=== PATIENT | female | born 1940 | race Caucasian/White ===

== ENCOUNTER → 2016-06-03 | Outpatient (CLI) | payer OTHER ==
[~2016-06-03] MED LIST: ATEN-60 PO; BACL10TA PO; CALC600T65 PO; OMEP20TA44 PO; SIMV-8 PO
[2016-06-03 14:35] LABS: Basophils # (auto) 0.1 uL; DEFINITIVE VIEW TRANSMISSION; Eosinophils # (auto) 0.1 uL; Hemoglobin 10.2 g/dL (12.2-16.2); Monocytes # (auto) 0.4 uL
[2016-06-03 14:37] LABS: Urine Bilirubin Negative (Negative); Urine Blood TRACE /uL (Negative); Urine Color Yellow (Yellow); Urine Glucose Normal (Normal); Urine Ketone Negative (Negative); Urine Nitrite Negative (Negative); Urine Urobilinogen Normal (Negative); Urine pH 7.5 (5.0-8.0)
[2016-06-03 14:39] LABS: Basophils % (auto) 1.6 % (0.0-2.0); Eosinophils % (auto) 2.4 % (0.0-7.0); Hematocrit 32.7 % (36.0-46.0); Lymphocytes % (auto) 16.5 % (10.0-50.0); Mean Corpuscular Hemoglobin 23.1 pg (28.0-32.0); Mean Corpuscular Hgb Conc. 31.1 g/dL (32.0-36.0); Mean Corpuscular Volume 74.3 fL (80.0-100.0); Mean Platelet Volume 9.1 fL (7.4-10.4); Monocytes % (auto) 6.7 % (0.0-12.0); Neutrophils # (auto) 4.3 uL; Neutrophils % (auto) 72.8 % (37.0-80.0); Platelet Count (auto) 412 10^3/uL (140-450); White Blood Cell 5.9 10^3/uL (4.4-10.8)
[2016-06-03 14:58] LABS: Albumin 3.7 g/dL (3.4-5.0); BUN/Creatinine Ratio 15.6; Bilirubin, Total 0.5 mg/dL (0.2-1.0); Potassium 3.8 mmol/L (3.5-5.1)
== END | disposition home or self-care (01) ==
LOC: LAB 13:54
PROVIDERS: ATTEND Internal Medicine Gastroenterology
DX: D50.0 Iron deficiency anemia secondary to blood loss (chronic) (principal); I10 Essential (primary) hypertension; D64.9 Anemia, unspecified
CPT/HCPCS: 36415; 80053; 80061; 81003; 82306; 82607; 83036; 85025; 85049

== ENCOUNTER 2016-08-05 07:39 | Emergency (ER) | payer OTHER ==
[~2016-08-05] VITALS: Ht 162.6 cm; Wt 66.7 kg
[2016-08-05 08:01] VITALS: BP 112/52
[2016-08-05] MEDS ORDERED: SODIUM CHLORIDE 0.9% 2,000 ML IV ONE (08:31)
[2016-08-05] MEDS ORDERED: ONDANSETRON HCL 4 MG/2 ML VIAL IV ONE (08:45)
[2016-08-05] MEDS ORDERED: MORPHINE SULF INJ 2 MG/ML SYRINGE 1ML IV ONE (08:45)
[2016-08-05] MEDS ORDERED: cefTRIAXone 1GM/50ML D5W 50 ML IV ONE (09:00)
[2016-08-05 09:27] LABS: Basophils # (auto) 0.1 uL; Basophils % (auto) 1.3 % (0.0-2.0); DEFINITIVE VIEW TRANSMISSION; Eosinophils # (auto) 0.2 uL; Eosinophils % (auto) 2.2 % (0.0-7.0); Hematocrit 31.8 % (36.0-46.0); Lymphocytes # (auto) 1.2 uL; Lymphocytes % (auto) 13.5 % (10.0-50.0); Mean Corpuscular Hemoglobin 21.9 pg (28.0-32.0); Mean Corpuscular Hgb Conc. 31.3 g/dL (32.0-36.0); Mean Corpuscular Volume 69.9 fL (80.0-100.0); Mean Platelet Volume 8.5 fL (7.4-10.4); Monocytes # (auto) 0.5 uL; Monocytes % (auto) 5.5 % (0.0-12.0); Neutrophils # (auto) 7.1 uL; Neutrophils % (auto) 77.5 % (37.0-80.0); Platelet Count (auto) 476 10^3/uL (140-450); Red Cell Distribution Width 17.7 % (11.6-16.0); White Blood Cell 9.1 10^3/uL (4.4-10.8)
[2016-08-05 09:44] LABS: Albumin 3.3 g/dL (3.4-5.0); BUN/Creatinine Ratio 19.4; Bilirubin, Total 0.3 mg/dL (0.2-1.0); Calcium 9.5 mg/dL (8.5-10.1); Total Protein 7.9 g/dL (6.4-8.2)
[2016-08-05 10:06] LABS: Urine Bilirubin Negative (Negative); Urine Color Yellow (Yellow); Urine Glucose Normal (Normal); Urine Hyaline Cast FEW /lpf (0 - 2); Urine Ketone Negative (Negative); Urine Mucus FEW (None Seen); Urine Nitrite Negative (Negative); Urine RBC 4 /hpf (0 - 4); Urine Squamous Epithelial Cell FEW /hpf (<5); Urine Urobilinogen Normal (Negative); Urine WBC Clumps PRESENT /hpf (None Seen)
[2016-08-05 10:09] LABS: Urine Blood 1+ /uL (Negative)
== END 2016-08-05 10:35 | disposition home or self-care (01) ==
LOC: ER 07:39
DX: N39.0 Urinary tract infection, site not specified (principal); I10 Essential (primary) hypertension; M19.90 Unspecified osteoarthritis, unspecified site; K21.9 Gastro-esophageal reflux disease without esophagitis; E78.5 Hyperlipidemia, unspecified; I25.2 Old myocardial infarction; Z98.61 Coronary angioplasty status; Z88.6 Allergy status to analgesic agent; Z79.899 Other long term (current) drug therapy
CPT/HCPCS: 36415; 71010; 76775; 80053; 81001; 81002; 85025; 93005; 94761; 96365; 96375; 99285; J0696; J2270; J2405; J7030

== ENCOUNTER 2016-08-10 08:40 | Emergency (ER) | payer OTHER ==
[~2016-08-10] VITALS: Ht 162.6 cm; Wt 66.7 kg
[2016-08-10 08:45] VITALS: BP 155/73
[2016-08-10] MEDS ORDERED: SODIUM CHLORIDE 0.9% 250 ML IV ONE (10:33)
[2016-08-10] MEDS ORDERED: KETOROLAC TROMETH 30 MG/ML 1ML VIAL IV ONE (10:45)
[2016-08-10] MEDS ORDERED: METOCLOPRAMIDE HCL 5MG/ml INJ 2ml VIAL IV ONE (10:45)
[2016-08-10] MEDS ORDERED: DEXAMETHASONE SOD PHOS 4 MG/1ML SDV INJ IV ONE (10:45)
== END 2016-08-10 12:54 | disposition home or self-care (01) ==
LOC: ER 08:42
DX: M51.36 Other intervertebral disc degeneration, lumbar region (principal); M19.90 Unspecified osteoarthritis, unspecified site; I10 Essential (primary) hypertension; K21.9 Gastro-esophageal reflux disease without esophagitis; E78.5 Hyperlipidemia, unspecified; I25.2 Old myocardial infarction; Z98.61 Coronary angioplasty status; G89.29 Other chronic pain; M54.5 Low back pain; Z88.6 Allergy status to analgesic agent; Z79.899 Other long term (current) drug therapy
CPT/HCPCS: 93005; 96361; 96374; 96375; 99284; J1100; J1885; J2765; J7030

== ENCOUNTER → 2016-08-25 | Outpatient (CLI) | payer OTHER | END | disposition home or self-care (01) | LOC: LAB 10:30 | DX: E03.9 Hypothyroidism, unspecified (principal); E21.5 Disorder of parathyroid gland, unspecified; N39.0 Urinary tract infection, site not specified; E55.9 Vitamin D deficiency, unspecified | CPT/HCPCS: 36415; 82306; 83970; 84155; 84156; 84165; 84166; 84443 ==

== ENCOUNTER → 2016-12-02 | Outpatient (CLI) | payer OTHER ==
[2016-12-02 10:15] LABS: BUN/Creatinine Ratio 15.7; Potassium 3.7 mmol/L (3.5-5.1)
[2016-12-02 10:16] LABS: Albumin 3.6 g/dL (3.4-5.0); Bilirubin, Total 0.6 mg/dL (0.2-1.0); Calcium 8.9 mg/dL (8.5-10.1); Total Protein 7.5 g/dL (6.4-8.2)
== END | disposition home or self-care (01) ==
LOC: LAB 09:05
PROVIDERS: ATTEND Family Medicine
DX: I10 Essential (primary) hypertension (principal); R13.10 Dysphagia, unspecified; E11.9 Type 2 diabetes mellitus without complications; D64.9 Anemia, unspecified
CPT/HCPCS: 36415; 80053; 80061; 82607; 83036; 84443

== ENCOUNTER 2016-12-22 17:25 | Inpatient (IN) | payer OTHER ==
[~2016-12-22] VITALS: Ht 162.6 cm; Wt 68.0 kg
[2016-12-22 18:52] LABS: Basophils # (auto) 0.1 uL; CONDITION Y; DEFINITIVE SEE PRINTOUT; Eosinophils # (auto) 0 uL; Eosinophils % (auto) 0.5 % (0.0-7.0); Hematocrit 20.4 % (36.0-46.0); Lymphocytes % (auto) 9.5 % (10.0-50.0); Mean Corpuscular Hemoglobin 17.8 pg (28.0-32.0); Mean Corpuscular Hgb Conc. 29.8 g/dL (32.0-36.0); Mean Corpuscular Volume 59.8 fL (80.0-100.0); Mean Platelet Volume 8.5 fL (7.4-10.4); Monocytes # (auto) 0.8 uL; Monocytes % (auto) 7.4 % (0.0-12.0); Neutrophils # (auto) 8.3 uL; Neutrophils % (auto) 81.6 % (37.0-80.0); Platelet Count (auto) 433 10^3/uL (140-450); White Blood Cell 10.2 10^3/uL (4.4-10.8)
[2016-12-22 18:55] LABS: Red Cell Distribution Width 20.1 % (11.6-16.0)
[2016-12-22 18:56] LABS: Hemoglobin 6.1 g/dL (12.2-16.2)
[2016-12-22 19:15] LABS: Albumin 3.7 g/dL (3.4-5.0); Calcium 9.6 mg/dL (8.5-10.1); Potassium 4.3 mmol/L (3.5-5.1)
[2016-12-22] MEDS ORDERED: PANTOPRAZOLE 40 MG/10 ML VIAL IV ONE (19:15)
[2016-12-22] MEDS ORDERED: SODIUM CHLORIDE 0.9% 1,000 ML IV ONE (19:15)
[2016-12-22 19:17] LABS: BUN/Creatinine Ratio 18.6
[2016-12-22 19:27] LABS: Bilirubin, Total 0.4 mg/dL (0.2-1.0); Total Protein 7.6 g/dL (6.4-8.2)
[2016-12-22 21:04] LABS: Anisocytosis Slight; Platelet Estimate Adequate
[2016-12-22 21:05] LABS: Hypochromia Slight; Microcytosis Slight; Ovalocytes FEW; Tear Drop Cells FEW
[2016-12-22] MEDS: ENOXAPARIN SOD 40 MG/0.4 ML SYRINGE SC SCH (21:13)
[2016-12-22] MEDS ORDERED: ACETAMINOPHEN 325 MG TAB PO PRN (21:15)
[2016-12-22] MEDS ORDERED: TEMAZEPAM 15 MG CAP PO PRN (21:15)
[2016-12-22] MEDS ORDERED: ONDANSETRON HCL 4 MG/2 ML VIAL IV PRN (21:15)
[2016-12-22 21:27] LABS: Urine Bilirubin Negative (Negative); Urine Blood Negative /uL (Negative); Urine Color Yellow (Yellow); Urine Glucose Normal (Normal); Urine Ketone Negative (Negative); Urine Nitrite Negative (Negative); Urine RBC <1 /hpf (0 - 4); Urine Squamous Epithelial Cell FEW /hpf (<5); Urine Urobilinogen Normal (Negative)
[2016-12-22] MEDS: ATORVASTATIN 20 MG TAB PO SCH (22:22)
[2016-12-22] MEDS: ATENOLOL 25 MG TAB PO SCH (22:22)
[2016-12-22] MEDS: SODIUM CHLORIDE 0.9% 1,000 ML IV SCH (22:22)
[2016-12-22 22:40] VITALS: BP 151/69
[2016-12-22 23:00] VITALS: BP 151/69
[2016-12-22 23:16] VITALS: BP 124/52
[2016-12-22 23:33] VITALS: BP 121/57
[2016-12-23] VITALS (22 sets, daily range): BP systolic 110–143; BP diastolic 45–78
[2016-12-23 06:32] LABS: Basophils # (auto) 0.1 uL; Basophils % (auto) 1.6 % (0.0-2.0); CONDITION Y; DEFINITIVE SEE PRINTOUT; Eosinophils # (auto) 0.2 uL; Eosinophils % (auto) 2.4 % (0.0-7.0); Hematocrit 24.6 % (36.0-46.0); Hemoglobin 7.6 g/dL (12.2-16.2); Lymphocytes # (auto) 1.7 uL; Lymphocytes % (auto) 21.6 % (10.0-50.0); Mean Corpuscular Hemoglobin 20.4 pg (28.0-32.0); Mean Corpuscular Volume 65.7 fL (80.0-100.0); Mean Platelet Volume 8.9 fL (7.4-10.4); Monocytes # (auto) 0.8 uL; Monocytes % (auto) 10.2 % (0.0-12.0); Neutrophils % (auto) 64.2 % (37.0-80.0); Platelet Count (auto) 390 10^3/uL (140-450); SUSPECT SEE PRINTOUT; White Blood Cell 7.8 10^3/uL (4.4-10.8)
[2016-12-23 06:34] LABS: Red Cell Distribution Width 26.4 % (11.6-16.0)
[2016-12-23 07:10] LABS: Albumin 3.1 g/dL (3.4-5.0); BUN/Creatinine Ratio 19.5; Bilirubin, Total 0.5 mg/dL (0.2-1.0); Calcium 8.5 mg/dL (8.5-10.1); Total Protein 6.3 g/dL (6.4-8.2)
[2016-12-23] MEDS: ATENOLOL 25 MG TAB PO SCH ×2 (09:02→23:04)
[2016-12-23] MEDS: PANTOPRAZOLE 40 MG/10 ML VIAL IV SCH (09:02)
[2016-12-23] MEDS: PARoxetine 20 MG TAB PO SCH (09:03)
[2016-12-23] MEDS: FERROUS SULFATE 325 MG TAB PO SCH ×2 (09:03→18:10)
[2016-12-23] MEDS ORDERED: PANTOPRAZOLE 40 MG/10 ML VIAL IV SCH (10:00)
[2016-12-23] MEDS ORDERED: cefTRIAXone 1GM/50ML D5W 50 ML IV ONE (12:30)
[2016-12-23] MEDS: guaiFENesin-DEXTROMETHORPHAN 5ML SYR PO PRN (12:59)
[2016-12-23] MEDS: SODIUM CHLORIDE 0.9% 1,000 ML IV SCH (14:02)
[2016-12-23 16:10] LABS: Platelet Estimate Adequate
[2016-12-23 16:11] LABS: Anisocytosis Moderate; Hypochromia Marked; Microcytosis Marked; Ovalocytes FEW
[2016-12-23 16:13] LABS: Tear Drop Cells FEW
[2016-12-23] MEDS: BOOST PLUS 8 ounce PO SCH (18:11)
[2016-12-23] MEDS: ENOXAPARIN SOD 40 MG/0.4 ML SYRINGE SC SCH (21:00)
[2016-12-23] MEDS: LATANOPROST 0.005 % OPTH(EYE) SOL 2.5ML EACHEYE SCH (22:59)
[2016-12-23] MEDS: ATORVASTATIN 20 MG TAB PO SCH (22:59)
[2016-12-24 01:10] VITALS: BP 139/68
[2016-12-24] MEDS: guaiFENesin-DEXTROMETHORPHAN 5ML SYR PO PRN (02:02)
[2016-12-24 05:27] VITALS: BP 130/56
[2016-12-24 06:08] LABS: Basophils # (auto) 0.1 uL; Basophils % (auto) 1.5 % (0.0-2.0); CONDITION Y; DEFINITIVE SEE PRINTOUT; Eosinophils # (auto) 0.2 uL; Eosinophils % (auto) 2.2 % (0.0-7.0); Hematocrit 29.5 % (36.0-46.0); Hemoglobin 9.3 g/dL (12.2-16.2); Lymphocytes # (auto) 1.8 uL; Mean Corpuscular Hemoglobin 22.1 pg (28.0-32.0); Mean Corpuscular Hgb Conc. 31.5 g/dL (32.0-36.0); Mean Corpuscular Volume 70.3 fL (80.0-100.0); Mean Platelet Volume 8.9 fL (7.4-10.4); Monocytes # (auto) 1.1 uL; Monocytes % (auto) 11.6 % (0.0-12.0); Neutrophils # (auto) 6.3 uL; Neutrophils % (auto) 65.7 % (37.0-80.0); Platelet Count (auto) 335 10^3/uL (140-450); SUSPECT SEE PRINTOUT; White Blood Cell 9.6 10^3/uL (4.4-10.8)
[2016-12-24] MEDS: SODIUM CHLORIDE 0.9% 1,000 ML IV SCH ×2 (06:22→23:02)
[2016-12-24 06:25] LABS: Albumin 3.1 g/dL (3.4-5.0); BUN/Creatinine Ratio 21.3; Bilirubin, Total 0.8 mg/dL (0.2-1.0); Calcium 8.2 mg/dL (8.5-10.1); Total Protein 6.4 g/dL (6.4-8.2)
[2016-12-24 06:26] LABS: Red Cell Distribution Width 28.6 % (11.6-16.0)
[2016-12-24] MEDS: BOOST PLUS 8 ounce PO SCH ×3 (08:00→18:00)
[2016-12-24 09:00] VITALS: BP 151/75
[2016-12-24] MEDS: FERROUS SULFATE 325 MG TAB PO SCH ×2 (09:07→18:00)
[2016-12-24] MEDS: cefTRIAXone 1GM/50ML D5W 50 ML IV SCH (09:08)
[2016-12-24] MEDS: PARoxetine 20 MG TAB PO SCH (10:28)
[2016-12-24] MEDS: PANTOPRAZOLE 40 MG/10 ML VIAL IV SCH (10:28)
[2016-12-24] MEDS: ATENOLOL 25 MG TAB PO SCH ×2 (10:31→22:30)
[2016-12-24 13:00] VITALS: BP 141/67
[2016-12-24] MEDS ORDERED: PAR20T GT (14:21)
[2016-12-24 15:34] LABS: Platelet Estimate Adequate
[2016-12-24 15:35] LABS: Anisocytosis Moderate; Hypochromia Moderate; Microcytosis Moderate; Ovalocytes MODERATE
[2016-12-24 15:36] LABS: Tear Drop Cells FEW
[2016-12-24 17:00] VITALS: BP 144/72
[2016-12-24] MEDS: ENOXAPARIN SOD 40 MG/0.4 ML SYRINGE SC SCH (20:35)
[2016-12-24 22:00] VITALS: BP 166/75
[2016-12-24] MEDS: ATORVASTATIN 20 MG TAB PO SCH (22:30)
[2016-12-24] MEDS: LATANOPROST 0.005 % OPTH(EYE) SOL 2.5ML EACHEYE SCH (22:30)
[2016-12-25 05:00] VITALS: BP 162/78
[2016-12-25 06:26] LABS: Basophils # (auto) 0.1 uL; Basophils % (auto) 1.2 % (0.0-2.0); CONDITION Y; DEFINITIVE SEE PRINTOUT; Eosinophils # (auto) 0.2 uL; Eosinophils % (auto) 1.9 % (0.0-7.0); Hematocrit 30.7 % (36.0-46.0); Hemoglobin 9.6 g/dL (12.2-16.2); Lymphocytes # (auto) 0.9 uL; Lymphocytes % (auto) 7.9 % (10.0-50.0); Mean Corpuscular Hemoglobin 22.2 pg (28.0-32.0); Mean Corpuscular Hgb Conc. 31.4 g/dL (32.0-36.0); Mean Corpuscular Volume 70.6 fL (80.0-100.0); Mean Platelet Volume 8.8 fL (7.4-10.4); Monocytes # (auto) 0.8 uL; Monocytes % (auto) 7.3 % (0.0-12.0); Neutrophils # (auto) 9.1 uL; Neutrophils % (auto) 81.7 % (37.0-80.0); Platelet Count (auto) 322 10^3/uL (140-450); SUSPECT SEE PRINTOUT; White Blood Cell 11.1 10^3/uL (4.4-10.8)
[2016-12-25 06:39] LABS: Red Cell Distribution Width 29.4 % (11.6-16.0)
[2016-12-25 06:47] LABS: BUN/Creatinine Ratio 19.7; Calcium 8.2 mg/dL (8.5-10.1); Potassium 3.7 mmol/L (3.5-5.1)
[2016-12-25 06:50] LABS: Bilirubin, Total 0.6 mg/dL (0.2-1.0); Total Protein 6.6 g/dL (6.4-8.2)
[2016-12-25 07:31] LABS: Platelet Estimate Adequate
[2016-12-25 07:32] LABS: Anisocytosis Moderate; Giant Platelets Few; Hypochromia Slight
[2016-12-25 07:33] LABS: Ovalocytes FEW
[2016-12-25 08:00] VITALS: BP 154/67
[2016-12-25] MEDS: BOOST PLUS 8 ounce PO SCH ×2 (08:00→12:27)
[2016-12-25 09:24] VITALS: BP 154/67
[2016-12-25] MEDS: FERROUS SULFATE 325 MG TAB PO SCH (12:26)
[2016-12-25] MEDS: cefTRIAXone 1GM/50ML D5W 50 ML IV SCH (12:26)
[2016-12-25] MEDS: PARoxetine 20 MG TAB PO SCH (12:27)
[2016-12-25] MEDS: ATENOLOL 25 MG TAB PO SCH (12:27)
[2016-12-25] MEDS: PANTOPRAZOLE 40 MG/10 ML VIAL IV SCH (12:27)
[2016-12-25 12:29] VITALS: BP 154/67
[2016-12-25 13:48] VITALS: BP 154/67
[2016-12-29] MEDS ORDERED: PANT40TA2 PO (17:35)
[2016-12-29] MEDS ORDERED: CALC200S4 (17:45)
[2016-12-29] MEDS ORDERED: LATA0.0015 EACHEYE (17:57)
[2016-12-29] MEDS ORDERED: ALBU18 IN (18:10)
[2016-12-29] MEDS ORDERED: RANI300C7 PO (18:12)
[2016-12-29] MEDS ORDERED: TRAM50TA2 PO (18:13)
== END 2016-12-25 23:59 | disposition home or self-care (01) | DRG 305 ==
LOC: ER 17:50 → OVERFLOW 17:51 → WEST WING 22:36
PROVIDERS: ADMIT Nurse Practitioner; ATTEND Family Medicine
PROC: 30233N1 Transfusion of Nonautologous Red Blood Cells into Peripheral Vein, Percutaneous Approach (ICD-10-PCS; principal; 2016-12-22)
DX: I13.10 Hypertensive heart and chronic kidney disease without heart failure, with stage 1 through stage 4 chronic kidney disease, or unspecified chronic kidney disease (principal); E44.0 Moderate protein-calorie malnutrition; E11.22 Type 2 diabetes mellitus with diabetic chronic kidney disease; J44.9 Chronic obstructive pulmonary disease, unspecified; J98.11 Atelectasis; D63.8 Anemia in other chronic diseases classified elsewhere; I25.10 Atherosclerotic heart disease of native coronary artery without angina pectoris; I12.9 Hypertensive chronic kidney disease with stage 1 through stage 4 chronic kidney disease, or unspecified chronic kidney disease; N18.3 Chronic kidney disease, stage 3 (moderate); K21.9 Gastro-esophageal reflux disease without esophagitis; M19.90 Unspecified osteoarthritis, unspecified site; F41.9 Anxiety disorder, unspecified; K44.9 Diaphragmatic hernia without obstruction or gangrene; K57.90 Diverticulosis of intestine, part unspecified, without perforation or abscess without bleeding; M43.16 Spondylolisthesis, lumbar region; E78.5 Hyperlipidemia, unspecified; M51.36 Other intervertebral disc degeneration, lumbar region; I25.2 Old myocardial infarction; Z88.6 Allergy status to analgesic agent; Z90.710 Acquired absence of both cervix and uterus; Z83.3 Family history of diabetes mellitus; Z82.49 Family history of ischemic heart disease and other diseases of the circulatory system; Z98.61 Coronary angioplasty status; Z68.25 Body mass index [BMI] 25.0-25.9, adult
CPT/HCPCS: 36415; 36430; 74176; 80053; 81001; 82270; 83540; 83550; 85025; 86850; 86900; 86901; 86920; 87086; 93005; 96361; 96374; 99291; C9113; J0696

== ENCOUNTER → 2016-12-22 | Outpatient (CLI) | payer OTHER ==
[2016-12-22 12:37] LABS: Basophils # (auto) 0.2 uL; Basophils % (auto) 2.2 % (0.0-2.0); CONDITION Y; DEFINITIVE SEE PRINTOUT; Eosinophils # (auto) 0.1 uL; Eosinophils % (auto) 1.4 % (0.0-7.0); Hematocrit 21.5 % (36.0-46.0); Lymphocytes # (auto) 1.1 uL; Lymphocytes % (auto) 14.7 % (10.0-50.0); Mean Corpuscular Hemoglobin 17.7 pg (28.0-32.0); Mean Corpuscular Hgb Conc. 29.7 g/dL (32.0-36.0); Mean Corpuscular Volume 59.7 fL (80.0-100.0); Mean Platelet Volume 8.9 fL (7.4-10.4); Monocytes # (auto) 0.7 uL; Neutrophils # (auto) 5.4 uL; Neutrophils % (auto) 72.7 % (37.0-80.0); Platelet Count (auto) 534 10^3/uL (140-450); Red Cell Distribution Width 19.7 % (11.6-16.0); White Blood Cell 7.4 10^3/uL (4.4-10.8)
[2016-12-22 13:42] LABS: Hemoglobin 6.4 g/dL (12.2-16.2)
[2016-12-22 15:27] LABS: Anisocytosis Moderate; Hypochromia Moderate; Microcytosis Moderate; Ovalocytes FEW; Platelet Estimate Increased
[2016-12-22 15:28] LABS: Tear Drop Cells FEW
== END | disposition home or self-care (01) ==
LOC: LAB 11:59
PROVIDERS: ATTEND Internal Medicine Gastroenterology
DX: D64.9 Anemia, unspecified (principal); J18.9 Pneumonia, unspecified organism; Z95.5 Presence of coronary angioplasty implant and graft; Z90.710 Acquired absence of both cervix and uterus
CPT/HCPCS: 36415; 82270; 85025

== ENCOUNTER → 2017-01-15 | Outpatient (CLI) | payer OTHER ==
[~2017-01-15] MED LIST changes: +ALBU18 IN; -BACL10TA PO; +CALC200S4; +LATA0.0015 EACHEYE; -OMEP20TA44 PO; +PANT40TA2 PO; +PAR20T GT; +RANI300C7 PO; +TRAM50TA2 PO
[2017-01-15 13:11] LABS: Basophils # (auto) 0.1 uL; Basophils % (auto) 1.6 % (0.0-2.0); CONDITION Y; DEFINITIVE SEE PRINTOUT; Eosinophils # (auto) 0.1 uL; Eosinophils % (auto) 1.4 % (0.0-7.0); Hematocrit 37.2 % (36.0-46.0); Hemoglobin 11.8 g/dL (12.2-16.2); Lymphocytes # (auto) 1.3 uL; Mean Corpuscular Hemoglobin 23.1 pg (28.0-32.0); Mean Corpuscular Hgb Conc. 31.7 g/dL (32.0-36.0); Mean Corpuscular Volume 72.8 fL (80.0-100.0); Mean Platelet Volume 9.1 fL (7.4-10.4); Monocytes # (auto) 0.6 uL; Monocytes % (auto) 6.1 % (0.0-12.0); Neutrophils # (auto) 7.2 uL; Neutrophils % (auto) 76.9 % (37.0-80.0); Platelet Count (auto) 652 10^3/uL (140-450); Reticulocyte Count 0.75 % (0.5-1.5); SUSPECT SEE PRINTOUT; White Blood Cell 9.3 10^3/uL (4.4-10.8)
[2017-01-15 13:17] LABS: Red Cell Distribution Width 31.3 % (11.6-16.0)
[2017-01-15 13:36] LABS: Vitamin B12 775 pg/mL (211-911)
[2017-01-15 13:38] LABS: Albumin 3.6 g/dL (3.4-5.0); BUN/Creatinine Ratio 23.6; Bilirubin, Total 0.4 mg/dL (0.2-1.0); Calcium 9.3 mg/dL (8.5-10.1); Potassium 3.7 mmol/L (3.5-5.1); Total Protein 7.9 g/dL (6.4-8.2)
[2017-01-15 13:41] LABS: Anisocytosis Slight; Platelet Estimate Increased
[2017-01-15 13:42] LABS: Hypochromia Slight; Ovalocytes FEW; Tear Drop Cells FEW; Wright Stain Ready for Review
[2017-01-15 13:52] LABS: Temperature: 23.7 C (20.0-25.0)
[2017-01-17 01:20] LABS: Erythropoietin 22.7 mIU/mL (2.6-18.5)
[2017-01-17 05:06] LABS: Haptoglobin 159 mg/dL (34-200)
== END | disposition home or self-care (01) ==
LOC: LAB 12:03
PROVIDERS: ATTEND Internal Medicine
DX: D64.9 Anemia, unspecified (principal); I10 Essential (primary) hypertension; J44.9 Chronic obstructive pulmonary disease, unspecified
CPT/HCPCS: 36415; 80053; 82607; 82668; 82728; 82746; 83010; 83540; 83550; 83615; 84436; 84439; 84443; 85025; 85045; 85652; 86038; 86850; 86880

== ENCOUNTER 2017-03-28 06:50 | Emergency (ER) | payer OTHER ==
[~2017-03-28] VITALS: Ht 160 cm; Wt 62.6 kg
[2017-03-28 07:26] LABS: Basophils # (auto) 0.1 uL; Basophils % (auto) 0.3 % (0.0-2.0); Eosinophils # (auto) 0 uL; Eosinophils % (auto) 0.1 % (0.0-7.0); Hematocrit 37.5 % (36.0-46.0); Hemoglobin 12.2 g/dL (12.2-16.2); Lymphocytes # (auto) 0.5 uL; Mean Corpuscular Hemoglobin 27.1 pg (28.0-32.0); Mean Corpuscular Hgb Conc. 32.6 g/dL (32.0-36.0); Mean Corpuscular Volume 83.1 fL (80.0-100.0); Mean Platelet Volume 8.2 fL (6.9-10.8); Monocytes # (auto) 0.9 uL; Monocytes % (auto) 4.9 % (0.0-12.0); Neutrophils # (auto) 15.9 uL; Neutrophils % (auto) 91.7 % (37.0-80.0); Platelet Count (auto) 304 10^3/uL (140-450); Red Cell Distribution Width 18.7 % (11.8-14.3); White Blood Cell 17.4 10^3/uL (4.4-10.8)
[2017-03-28] MEDS ORDERED: SODIUM CHLORIDE 0.9% 1,000 ML IV ONE (07:26)
[2017-03-28] MEDS ORDERED: KETOROLAC TROMETH 30 MG/ML 1ML VIAL IV ONE (07:30)
[2017-03-28] MEDS ORDERED: PROMETHAZINE HCL 25 MG/ML 1ML IV PRN (07:30)
[2017-03-28 07:51] LABS: Albumin 3.8 g/dL (3.4-5.0); BUN/Creatinine Ratio 20.3; Bilirubin, Total 0.4 mg/dL (0.2-1.0); Calcium 9.1 mg/dL (8.5-10.1); Magnesium 1.8 mg/dL (1.6-2.6); Potassium 3.1 mmol/L (3.5-5.1)
[2017-03-28 08:35] LABS: Urine Bilirubin Negative (Negative); Urine Blood 2+ /uL (Negative); Urine Color Yellow (Yellow); Urine Glucose Normal (Normal); Urine Ketone Negative (Negative); Urine Nitrite Negative (Negative); Urine RBC 1002 /hpf (0 - 4); Urine Urobilinogen Normal (Negative); Urine WBC Clumps PRESENT /hpf (None Seen); Urine pH 6.5 (5.0-8.0)
[2017-03-28] MEDS ORDERED: cefTRIAXone 1GM/50ML D5W 50 ML IV ONE (09:45)
[2017-03-28] MEDS ORDERED: POTASSIUM CHL 20 Meq TABLET PO ONE (09:45)
[2017-03-28 11:03] VITALS: BP 150/57
== END 2017-03-28 11:10 | disposition home or self-care (01) ==
LOC: ER 06:50
DX: N39.0 Urinary tract infection, site not specified (principal); M47.896 Other spondylosis, lumbar region; E87.6 Hypokalemia; M19.90 Unspecified osteoarthritis, unspecified site; J44.9 Chronic obstructive pulmonary disease, unspecified; E78.5 Hyperlipidemia, unspecified; I25.2 Old myocardial infarction; K21.9 Gastro-esophageal reflux disease without esophagitis; Z90.710 Acquired absence of both cervix and uterus; Z98.61 Coronary angioplasty status; Z79.899 Other long term (current) drug therapy; Z88.6 Allergy status to analgesic agent
CPT/HCPCS: 36415; 74176; 80053; 81001; 83690; 83735; 85025; 96361; 96365; 96375; 99285; J0696; J1885; J2550; J7030

== ENCOUNTER → 2017-04-08 | Outpatient (CLI) | payer OTHER ==
[2017-04-08 13:10] LABS: Basophils # (auto) 0.1 uL; Basophils % (auto) 1.7 % (0.0-2.0); Eosinophils # (auto) 0.1 uL; Eosinophils % (auto) 2.5 % (0.0-7.0); Hematocrit 36.6 % (36.0-46.0); Lymphocytes # (auto) 1.1 uL; Mean Corpuscular Hemoglobin 27.5 pg (28.0-32.0); Mean Corpuscular Hgb Conc. 32.8 g/dL (32.0-36.0); Mean Corpuscular Volume 83.9 fL (80.0-100.0); Mean Platelet Volume 7.9 fL (6.9-10.8); Monocytes # (auto) 0.5 uL; Monocytes % (auto) 7.8 % (0.0-12.0); Nucleated Red Blood Cells % 0.1 %; Platelet Count (auto) 355 10^3/uL (140-450); Red Cell Distribution Width 16.9 % (11.8-14.3); White Blood Cell 5.8 10^3/uL (4.4-10.8)
[2017-04-08 13:57] LABS: Albumin 3.6 g/dL (3.4-5.0); BUN/Creatinine Ratio 20.6; Bilirubin, Total 0.3 mg/dL (0.2-1.0); Calcium 9.1 mg/dL (8.5-10.1); Potassium 3.4 mmol/L (3.5-5.1); Total Protein 7.8 g/dL (6.4-8.2)
== END | disposition home or self-care (01) ==
LOC: LAB 12:33
PROVIDERS: ATTEND Family Medicine
DX: D64.9 Anemia, unspecified (principal)
CPT/HCPCS: 36415; 80053; 82728; 83540; 83550; 83615; 85025

== ENCOUNTER → 2017-04-23 | Outpatient (CLI) | payer OTHER ==
[2017-04-23 12:19] LABS: Basophils # (auto) 0.1 uL; Basophils % (auto) 1.5 % (0.0-2.0); Eosinophils # (auto) 0.1 uL; Eosinophils % (auto) 1.6 % (0.0-7.0); Hematocrit 35.7 % (36.0-46.0); Hemoglobin 11.7 g/dL (12.2-16.2); Lymphocytes # (auto) 1.2 uL; Lymphocytes % (auto) 17.6 % (10.0-50.0); Mean Corpuscular Hemoglobin 27.6 pg (28.0-32.0); Mean Corpuscular Hgb Conc. 32.7 g/dL (32.0-36.0); Mean Corpuscular Volume 84.6 fL (80.0-100.0); Mean Platelet Volume 8.3 fL (6.9-10.8); Monocytes # (auto) 0.6 uL; Monocytes % (auto) 8.4 % (0.0-12.0); Neutrophils # (auto) 4.7 uL; Neutrophils % (auto) 70.9 % (37.0-80.0); Platelet Count (auto) 320 10^3/uL (140-450); Red Cell Distribution Width 16.3 % (11.8-14.3); White Blood Cell 6.6 10^3/uL (4.4-10.8)
[2017-04-23 12:52] LABS: Albumin 3.7 g/dL (3.4-5.0); BUN/Creatinine Ratio 21.9; Bilirubin, Total 0.4 mg/dL (0.2-1.0); Calcium 8.9 mg/dL (8.5-10.1); Potassium 3.6 mmol/L (3.5-5.1); Total Protein 7.9 g/dL (6.4-8.2)
== END | disposition home or self-care (01) ==
LOC: LAB 11:48
PROVIDERS: ATTEND Internal Medicine
DX: D64.9 Anemia, unspecified (principal)
CPT/HCPCS: 36415; 80053; 82728; 83540; 83550; 83615; 85025

== ENCOUNTER 2017-05-22 16:55 | Inpatient (IN) | payer OTHER ==
[~2017-05-22] VITALS: Ht 160 cm; Wt 65.8 kg
[2017-05-22 17:23] LABS: Eosinophils # (auto) 0.2 uL; Eosinophils % (auto) 2.2 % (0.0-7.0); Lymphocytes # (auto) 1.4 uL; Lymphocytes % (auto) 17.8 % (10.0-50.0); Mean Corpuscular Hemoglobin 27.9 pg (28.0-32.0); Neutrophils # (auto) 5.4 uL
[2017-05-22 17:25] LABS: Basophils # (auto) 0 uL; Basophils % (auto) 0.3 % (0.0-2.0); Hematocrit 23.8 % (36.0-46.0); Hemoglobin 7.6 g/dL (12.2-16.2); Monocytes # (auto) 0.7 uL; Monocytes % (auto) 9.5 % (0.0-12.0); Neutrophils % (auto) 70.2 % (37.0-80.0); Nucleated Red Blood Cells % 0.1 %; Platelet Count (auto) 364 10^3/uL (140-450); Red Blood Cells 2.74 10^6/uL (4.0-5.20); Red Cell Distribution Width 15.9 % (11.8-14.3); White Blood Cell 7.7 10^3/uL (4.4-10.8)
[2017-05-22 17:32] LABS: Urine Bacteria FEW /hpf (None Seen); Urine Blood Negative /uL (Negative); Urine Hyaline Cast FEW /lpf (0 - 2); Urine Mucus FEW (None Seen); Urine Specific Gravity 1.007 (1.001-1.035); Urine WBC 5 /hpf (0 - 5)
[2017-05-22 17:46] LABS: INR 0.98 (0.9-1.15); Partial Thromboplastin Time 23.3 sec (22.64-33.71); Prothrombin Time 10.7 sec (9.37-12.3)
[2017-05-22 17:48] LABS: Albumin 3.2 g/dL (3.4-5.0); BUN/Creatinine Ratio 12.2; Potassium 3.7 mmol/L (3.5-5.1)
[2017-05-22 17:51] LABS: Bilirubin, Total 0.2 mg/dL (0.2-1.0); Total Protein 6.9 g/dL (6.4-8.2)
[2017-05-22 22:08] VITALS: BP 142/79
[2017-05-22 22:24] VITALS: BP 162/85
[2017-05-22] MEDS ORDERED: PANTOPRAZOLE 40 MG/10 ML VIAL IV ONE (22:45)
[2017-05-22 23:03] VITALS: BP 155/58
[2017-05-23] VITALS (7 sets, daily range): BP systolic 120–157; BP diastolic 54–85
[2017-05-23 05:43] LABS: Basophils # (auto) 0.1 uL; Basophils % (auto) 1.2 % (0.0-2.0); Eosinophils # (auto) 0.2 uL; Hemoglobin 9.1 g/dL (12.2-16.2); Lymphocytes # (auto) 1.5 uL; Lymphocytes % (auto) 18.9 % (10.0-50.0); Mean Corpuscular Hemoglobin 28.4 pg (28.0-32.0); Mean Corpuscular Hgb Conc. 32.6 g/dL (32.0-36.0); Mean Corpuscular Volume 87.3 fL (80.0-100.0); Monocytes # (auto) 0.8 uL; Monocytes % (auto) 10.2 % (0.0-12.0); Neutrophils # (auto) 5.5 uL; Neutrophils % (auto) 66.7 % (37.0-80.0); Platelet Count (auto) 296 10^3/uL (140-450); Red Blood Cells 3.21 10^6/uL (4.0-5.20); Red Cell Distribution Width 16.2 % (11.8-14.3); White Blood Cell 8.2 10^3/uL (4.4-10.8)
[2017-05-23 06:37] LABS: BUN/Creatinine Ratio 15.6; Calcium 7.9 mg/dL (8.5-10.1); Potassium 3.7 mmol/L (3.5-5.1)
[2017-05-23] MEDS ORDERED: PANTOPRAZOLE 40 MG/10 ML VIAL IV SCH (10:00)
[2017-05-23] MEDS ORDERED: PARoxetine 20 MG TAB PO SCH (10:00)
== END 2017-05-23 19:05 | disposition home or self-care (01) | DRG 379 ==
LOC: ER 16:57 → OVERFLOW 16:58 → WEST WING 05-23 15:43
PROVIDERS: ADMIT Nurse Practitioner Family; ATTEND Nurse Practitioner Family
PROC: 30233N1 Transfusion of Nonautologous Red Blood Cells into Peripheral Vein, Percutaneous Approach (ICD-10-PCS; principal; 2017-05-22)
DX: K92.1 Melena (principal); J44.9 Chronic obstructive pulmonary disease, unspecified; D50.0 Iron deficiency anemia secondary to blood loss (chronic); I10 Essential (primary) hypertension; I25.10 Atherosclerotic heart disease of native coronary artery without angina pectoris; K21.9 Gastro-esophageal reflux disease without esophagitis; F41.9 Anxiety disorder, unspecified; G89.29 Other chronic pain; M54.5 Low back pain; M19.90 Unspecified osteoarthritis, unspecified site; Z79.899 Other long term (current) drug therapy; Z82.49 Family history of ischemic heart disease and other diseases of the circulatory system; Z83.3 Family history of diabetes mellitus; Z88.5 Allergy status to narcotic agent; I25.2 Old myocardial infarction; Z98.61 Coronary angioplasty status; Z80.8 Family history of malignant neoplasm of other organs or systems; Z82.3 Family history of stroke; Z90.710 Acquired absence of both cervix and uterus
CPT/HCPCS: 36415; 36430; 71046; 80048; 80053; 81001; 85025; 85610; 85730; 86850; 86900; 86901; 86920; 93005; 94761; 96374; 96376; C9113

== ENCOUNTER → 2017-05-22 | Outpatient (CLI) | payer OTHER ==
[2017-05-22 13:47] LABS: Basophils # (auto) 0.1 uL; Eosinophils # (auto) 0.2 uL; Hemoglobin 7.7 g/dL (12.2-16.2); Lymphocytes % (auto) 17.9 % (10.0-50.0); Monocytes # (auto) 0.5 uL; Neutrophils # (auto) 3.8 uL
[2017-05-22 13:49] LABS: Basophils % (auto) 2.2 % (0.0-2.0); Eosinophils % (auto) 3.2 % (0.0-7.0); Hematocrit 24.3 % (36.0-46.0); Mean Corpuscular Hemoglobin 27.3 pg (28.0-32.0); Mean Corpuscular Hgb Conc. 31.7 g/dL (32.0-36.0); Mean Corpuscular Volume 86.1 fL (80.0-100.0); Monocytes % (auto) 8.8 % (0.0-12.0); Neutrophils % (auto) 67.9 % (37.0-80.0); Nucleated Red Blood Cells % 0.1 %; Platelet Count (auto) 351 10^3/uL (140-450); Red Blood Cells 2.82 10^6/uL (4.0-5.20); Red Cell Distribution Width 15.7 % (11.8-14.3); White Blood Cell 5.6 10^3/uL (4.4-10.8)
== END | disposition home or self-care (01) ==
LOC: LAB 13:27
PROVIDERS: ATTEND Family Medicine
DX: E10.65 Type 1 diabetes mellitus with hyperglycemia (principal); L82.1 Other seborrheic keratosis
CPT/HCPCS: 36415; 85025

== ENCOUNTER → 2017-05-25 | Outpatient (CLI) | payer OTHER ==
[2017-05-25 13:40] LABS: Basophils # (auto) 0.1 uL; Basophils % (auto) 1.3 % (0.0-2.0); Eosinophils # (auto) 0.1 uL; Eosinophils % (auto) 2.2 % (0.0-7.0); Hematocrit 33.3 % (36.0-46.0); Hemoglobin 10.7 g/dL (12.2-16.2); Lymphocytes # (auto) 0.7 uL; Lymphocytes % (auto) 12.4 % (10.0-50.0); Mean Corpuscular Hemoglobin 27.9 pg (28.0-32.0); Mean Corpuscular Hgb Conc. 32.2 g/dL (32.0-36.0); Mean Corpuscular Volume 86.7 fL (80.0-100.0); Monocytes # (auto) 0.4 uL; Monocytes % (auto) 7.1 % (0.0-12.0); Neutrophils # (auto) 4.3 uL; Platelet Count (auto) 356 10^3/uL (140-450); Red Blood Cells 3.84 10^6/uL (4.0-5.20); Red Cell Distribution Width 16.3 % (11.8-14.3); White Blood Cell 5.6 10^3/uL (4.4-10.8)
[2017-05-25 13:54] LABS: Albumin 3.6 g/dL (3.4-5.0); BUN/Creatinine Ratio 13.6; Bilirubin, Total 0.4 mg/dL (0.2-1.0); Calcium 9.1 mg/dL (8.5-10.1); Potassium 3.7 mmol/L (3.5-5.1); Total Protein 7.4 g/dL (6.4-8.2)
[2017-05-25 14:03] LABS: % Iron Saturation 16.3 % (15-50)
== END | disposition home or self-care (01) ==
LOC: LAB 13:17
PROVIDERS: ATTEND Internal Medicine
DX: D64.9 Anemia, unspecified (principal)
CPT/HCPCS: 36415; 80053; 82728; 83540; 83550; 83615; 85025

== ENCOUNTER → 2017-06-04 | Outpatient (CLI) | payer OTHER ==
[2017-06-04 13:28] LABS: Albumin 3.7 g/dL (3.4-5.0); BUN/Creatinine Ratio 14.3; Bilirubin, Total 0.5 mg/dL (0.2-1.0); Calcium 8.8 mg/dL (8.5-10.1); Potassium 4.9 mmol/L (3.5-5.1); Total Protein 7.9 g/dL (6.4-8.2)
[2017-06-04 13:30] LABS: Basophils # (auto) 0.1 uL; Basophils % (auto) 2.3 % (0.0-2.0); Eosinophils # (auto) 0.2 uL; Eosinophils % (auto) 3.2 % (0.0-7.0); Hematocrit 35.8 % (36.0-46.0); Hemoglobin 11.4 g/dL (12.2-16.2); Lymphocytes # (auto) 0.9 uL; Lymphocytes % (auto) 15.1 % (10.0-50.0); Mean Corpuscular Hemoglobin 27.8 pg (28.0-32.0); Mean Corpuscular Hgb Conc. 31.8 g/dL (32.0-36.0); Mean Corpuscular Volume 87.5 fL (80.0-100.0); Monocytes # (auto) 0.5 uL; Neutrophils # (auto) 4.2 uL; Neutrophils % (auto) 71.4 % (37.0-80.0); Platelet Count (auto) 399 10^3/uL (140-450); Red Blood Cells 4.09 10^6/uL (4.0-5.20); White Blood Cell 5.9 10^3/uL (4.4-10.8)
[2017-06-04 14:18] LABS: % Iron Saturation 4.6 % (15-50)
[2017-06-04 14:37] LABS: Ferritin 25.1 ng/mL (10-322); Free T4 (Free Thyroxine) 0.96 ng/dL (0.89-1.76)
[2017-06-04 15:20] LABS: Folate (Folic Acid) > 24.00 ng/mL (5.38-24)
== END | disposition home or self-care (01) ==
LOC: LAB 12:18
PROVIDERS: ATTEND Internal Medicine
DX: D64.9 Anemia, unspecified (principal); J44.9 Chronic obstructive pulmonary disease, unspecified; F41.9 Anxiety disorder, unspecified
CPT/HCPCS: 36415; 80053; 82607; 82668; 82728; 82746; 83010; 83540; 83550; 83615; 84436; 84439; 84443; 85025; 85045; 85652; 86038; 86880; 86885

== ENCOUNTER → 2017-08-03 | Outpatient (CLI) | payer OTHER ==
[2017-08-03 12:58] LABS: Band Neutrophils % (manual) 0; Basophils % (manual) 0 (0.0-2.0); Blast Cells 0; Hematocrit 41.1 % (36.0-46.0); Hemoglobin 13.2 g/dL (12.2-16.2); Mean Corpuscular Hgb Conc. 32.2 g/dL (32.0-36.0); Metamyelocytes % 0; Myelocytes % 0; Platelet Count (auto) 289 10^3/uL (140-450); Promyelocytes % 0; Reactive Lymphocytes 0; Red Blood Cells 4.73 10^6/uL (4.0-5.20); Red Cell Distribution Width 17.4 % (11.8-14.3); White Blood Cell 5.8 10^3/uL (4.4-10.8)
[2017-08-03 14:00] LABS: Ferritin 17.4 ng/mL (10-322); Free T4 (Free Thyroxine) 1.06 ng/dL (0.89-1.76)
[2017-08-03 14:01] LABS: Folate (Folic Acid) > 24.00 ng/mL (5.38-24)
[2017-08-03 14:06] LABS: % Iron Saturation 22.9 % (15-50)
[2017-08-03 14:10] LABS: Albumin 3.7 g/dL (3.4-5.0); BUN/Creatinine Ratio 18.8; Bilirubin, Total 0.4 mg/dL (0.2-1.0); Potassium 3.4 mmol/L (3.5-5.1); Total Protein 7.8 g/dL (6.4-8.2)
[2017-08-03 14:53] LABS: Lymphocytes % (manual) 11 (10.0-50.0)
[2017-08-03 14:54] LABS: Eosinophils % (manual) 1 (0-7); Monocytes % (manual) 4 (0-12)
== END | disposition home or self-care (01) ==
LOC: LAB 12:22
PROVIDERS: ATTEND Internal Medicine
DX: D64.9 Anemia, unspecified (principal); I10 Essential (primary) hypertension; J44.9 Chronic obstructive pulmonary disease, unspecified; E78.5 Hyperlipidemia, unspecified; E11.9 Type 2 diabetes mellitus without complications; Z79.899 Other long term (current) drug therapy
CPT/HCPCS: 36415; 80053; 82607; 82668; 82728; 82746; 83540; 83550; 83615; 84439; 84443; 85025; 85045; 85652; 86038; 86880; 86885

== ENCOUNTER → 2017-12-29 | Outpatient (CLI) | payer OTHER ==
[2017-12-29 12:13] LABS: Basophils # (auto) 0.1 uL; Basophils % (auto) 1.8 % (0.0-2.0); Eosinophils # (auto) 0.1 uL; Eosinophils % (auto) 2.9 % (0.0-7.0); Hemoglobin 13.8 g/dL (12.2-16.2); Lymphocytes # (auto) 0.8 uL; Lymphocytes % (auto) 16.3 % (10.0-50.0); Mean Corpuscular Hemoglobin 30.7 pg (28.0-32.0); Mean Corpuscular Hgb Conc. 33.7 g/dL (32.0-36.0); Mean Corpuscular Volume 91.1 fL (80.0-100.0); Monocytes # (auto) 0.4 uL; Monocytes % (auto) 7.6 % (0.0-12.0); Neutrophils # (auto) 3.6 uL; Neutrophils % (auto) 71.4 % (37.0-80.0); Nucleated Red Blood Cells % 0.1 %; Platelet Count (auto) 263 10^3/uL (140-450); Red Cell Distribution Width 13.2 % (11.8-14.3)
== END | disposition home or self-care (01) ==
LOC: LAB 11:50
PROVIDERS: ATTEND Family Medicine
DX: D50.8 Other iron deficiency anemias (principal); Z88.5 Allergy status to narcotic agent
CPT/HCPCS: 36415; 82607; 85025

== ENCOUNTER → 2018-06-01 | Outpatient (CLI) | payer OTHER ==
[2018-06-01 13:47] LABS: Basophils # (auto) 0.1 uL; Eosinophils # (auto) 0.1 uL; Eosinophils % (auto) 2.2 % (0.0-7.0); Hematocrit 41.9 % (36.0-46.0); Hemoglobin 13.9 g/dL (12.2-16.2); Lymphocytes # (auto) 0.9 uL; Lymphocytes % (auto) 18.5 % (10.0-50.0); Mean Corpuscular Hemoglobin 29.1 pg (28.0-32.0); Mean Corpuscular Hgb Conc. 33.3 g/dL (32.0-36.0); Mean Corpuscular Volume 87.5 fL (80.0-100.0); Monocytes # (auto) 0.4 uL; Monocytes % (auto) 7.4 % (0.0-12.0); Neutrophils # (auto) 3.4 uL; Neutrophils % (auto) 69.9 % (37.0-80.0); Platelet Count (auto) 283 10^3/uL (140-450); Red Blood Cells 4.79 10^6/uL (4.0-5.20); Red Cell Distribution Width 14.3 % (11.8-14.3); White Blood Cell 4.9 10^3/uL (4.4-10.8)
[2018-06-01 14:23] LABS: Alanine Aminotransferase 16 U/L (13-56); Albumin 3.5 g/dL (3.4-5.0); Anion Gap 5 (5-15); Aspartate Aminotransferase 20 U/L (15-37); Calcium 9.1 mg/dL (8.5-10.1); Carbon Dioxide 29 mmol/L (21-32); Chloride 105 mmol/L (98-107); GFR African American > 60 mL/min; GFR Non-African American > 60 mL/min; Potassium 3.7 mmol/L (3.5-5.1); Sodium 139 mmol/L (136-145)
[2018-06-01 14:24] LABS: % Iron Saturation 16.9 % (15-50)
[2018-06-01 14:32] LABS: Alkaline Phosphatase 63 U/L (45-117); BUN/Creatinine Ratio 22.2; Bilirubin, Total 0.5 mg/dL (0.2-1.0); Blood Urea Nitrogen 16 mg/dL (7-18); Cholesterol 166 mg/dL (< 200); Ferritin 14.3 ng/mL (10-322); Glucose 88 mg/dL (74-106); HDL Cholesterol 59 mg/dL (40-59); LDL Cholesterol 95 mg/dL (< 100); Total Protein 7.5 g/dL (6.4-8.2); Triglycerides 105 mg/dL (< 150)
== END | disposition home or self-care (01) ==
LOC: LAB 13:31
PROVIDERS: ATTEND Family Medicine
DX: I10 Essential (primary) hypertension (principal); D64.9 Anemia, unspecified; D50.8 Other iron deficiency anemias; E67.8 Other specified hyperalimentation; E78.49 Other hyperlipidemia
CPT/HCPCS: 36415; 80053; 80061; 82607; 82728; 83540; 83550; 85025

== ENCOUNTER → 2020-01-23 | Outpatient (CLI) | payer OTHER ==
[~2020-01-23] MED LIST changes: -LATA0.0015 EACHEYE; +LATA0.0019 EACHEYE
[2020-01-23 10:23] LABS: Basophils # (auto) 0.1 10 ^3/uL (0-0.2); Basophils % (auto) 1.4 % (0.0-2.0); Eosinophils # (auto) 0.2 10 ^3/uL (0-0.8); Eosinophils % (auto) 2.8 % (0.0-7.0); Hemoglobin 14.3 g/dL (12.2-16.2); Lymphocytes # (auto) 1.1 10 ^3/uL (0.4-5.4); Lymphocytes % (auto) 19.9 % (10.0-50.0); Mean Corpuscular Hemoglobin 30.2 pg (28.0-32.0); Mean Corpuscular Hgb Conc. 33.4 g/dL (32.0-36.0); Mean Corpuscular Volume 90.4 fL (80.0-100.0); Monocytes # (auto) 0.6 10 ^3/uL (0-1.3); Monocytes % (auto) 9.7 % (0.0-12.0); Neutrophils # (auto) 3.7 10 ^3/uL (1.6-8.6); Neutrophils % (auto) 66.2 % (37.0-80.0); Platelet Count (auto) 292 10^3/uL (140-450); Red Blood Cells 4.75 10^6/uL (4.0-5.20); Red Cell Distribution Width 13.1 % (11.8-14.3); White Blood Cell 5.7 10^3/uL (4.4-10.8)
[2020-01-23 10:24] LABS: Urine Bacteria NONE SEEN /hpf (None Seen); Urine Blood 1+ /uL (Negative); Urine Specific Gravity 1.006 (1.001-1.035); Urine WBC 107 /hpf (0 - 5)
[2020-01-23 10:42] LABS: Albumin 3.4 g/dL (3.4-5.0); Potassium 3.6 mmol/L (3.5-5.1)
[2020-01-23 10:50] LABS: BUN/Creatinine Ratio 16.9; Bilirubin, Total 0.7 mg/dL (0.2-1.0); Calcium 9.3 mg/dL (8.5-10.1); Total Protein 7.6 g/dL (6.4-8.2)
== END | disposition home or self-care (01) ==
LOC: LAB 09:52
PROVIDERS: ATTEND Family Medicine
DX: S22.080A Wedge compression fracture of T11-T12 vertebra, initial encounter for closed fracture (principal); I10 Essential (primary) hypertension; E78.49 Other hyperlipidemia; D50.8 Other iron deficiency anemias; K21.9 Gastro-esophageal reflux disease without esophagitis; M80.00XS Age-related osteoporosis with current pathological fracture, unspecified site, sequela; X58.XXXA Exposure to other specified factors, initial encounter; Y93.89 Activity, other specified; Y92.89 Other specified places as the place of occurrence of the external cause; Y99.8 Other external cause status
CPT/HCPCS: 36415; 80053; 80061; 81001; 82607; 84443; 85025

== ENCOUNTER 2023-03-30 00:32 | Inpatient (IN) | payer OTHER ==
[~2023-03-30] VITALS: Ht 160 cm; Wt 54.0 kg
[~2023-03-30 00:32] MED LIST changes: +ASPI-325 PO; +HYDR25TA5 PO; +ISO60SRT PO; -LATA0.0019 EACHEYE; +LATA0.008 EACHEYE; +LOSA50TA46 PO; +PANT40T PO; -SIMV-8 PO; +SIMV20TA20 PO
[2023-03-30] MEDS ORDERED: ONDANSETRON HCL 4 MG/2 ML VIAL IV ONE ×2 (01:30→03:30)
[2023-03-30 01:46] LABS: Basophils # (auto) 0.1 10 ^3/uL (0-0.2); Basophils % (auto) 0.8 % (0.0-2.0); Eosinophils # (auto) 0 10 ^3/uL (0-0.8); Hematocrit 41.8 % (36.0-46.0); Hemoglobin 13.7 g/dL (12.2-16.2); Lymphocytes # (auto) 0.5 10 ^3/uL (0.4-5.4); Lymphocytes % (auto) 6.4 % (10.0-50.0); Mean Corpuscular Hemoglobin 28.9 pg (28.0-32.0); Mean Corpuscular Hgb Conc. 32.8 g/dL (32.0-36.0); Mean Corpuscular Volume 87.9 fL (80.0-100.0); Monocytes # (auto) 0.2 10 ^3/uL (0-1.3); Monocytes % (auto) 3.1 % (0.0-12.0); Neutrophils # (auto) 6.8 10 ^3/uL (1.6-8.6); Neutrophils % (auto) 89.7 % (37.0-80.0); Nucleated Red Blood Cells % 0.2 %; Red Blood Cells 4.75 10^6/uL (4.0-5.20); White Blood Cell 7.5 10^3/uL (4.4-10.8)
[2023-03-30 02:08] LABS: INR 1.09 (0.9-1.15); Partial Thromboplastin Time 26.7 SEC (24.5-34.5); Prothrombin Time 11.4 sec (9.3-11.8)
[2023-03-30 02:09] LABS: Alanine Aminotransferase 11 U/L (7-40); Albumin 4.3 g/dL (3.2-4.8); Alkaline Phosphatase 66 U/L (46-116); Anion Gap 7 (5-15); Aspartate Aminotransferase 21 U/L (13-40); BUN/Creatinine Ratio 17.6 (10.0-20.0); Blood Urea Nitrogen 15 mg/dL (9-23); Calcium 9.4 mg/dL (8.7-10.4); Carbon Dioxide 31 mmol/L (20-30); Chloride 104 mmol/L (98-107); Glucose 139 mg/dL (74-106); Potassium 3.1 mmol/L (3.5-5.1); Sodium 142 mmol/L (136-145)
[2023-03-30 02:10] LABS: Bilirubin, Total 0.6 mg/dL (0.2-1.0); Total Protein 7.8 g/dL (5.7-8.2)
[2023-03-30] MEDS ORDERED: POTASSIUM EFFERVESENT TAB 25 MEQ PO ONE (03:15)
[2023-03-30] MEDS ORDERED: SODIUM CHLORIDE 0.9% 1,000 ML IV ONE (03:15)
[2023-03-30] MEDS ORDERED: METOCLOPRAMIDE HCL 5MG/ml INJ 2ml VIAL IV ONE (03:30)
[2023-03-30 05:14] LABS: Urine Bacteria FEW /hpf (None Seen); Urine Blood 1+ /uL (Negative); Urine Clarity HAZY (Clear); Urine Color Yellow (Yellow); Urine Mucus FEW (None Seen); Urine Protein, UAD 1+ (Negative); Urine Specific Gravity 1.016 (1.001-1.035); Urine Urobilinogen Normal (Negative); Urine WBC 255 /hpf (0 - 5); Urine WBC Clumps PRESENT /hpf (None Seen); Urine pH 6.5 (5.0-8.0)
[2023-03-30] MEDS ORDERED: ENOXAPARIN SOD 60 MG/0.6 ML SYRINGE SC ONE (05:45)
[2023-03-30] MEDS ORDERED: DexAMETHasone SOD PHOS 10MG/1ML VIAL INJ IV ONE (05:45)
[2023-03-30] MEDS ORDERED: PIPERACILLIN-TAZOB 3.375GM 100 ML IV ONE (05:45)
[2023-03-30] MEDS ORDERED: ALBUTEROL MEDNEB 2.5 mg/3ml NEB NEB ONE (05:45)
[2023-03-30] MEDS ORDERED: IOHEXOL 350 MG/ML 100ML IJ ONE (06:09)
[2023-03-30] MEDS ORDERED: DOCUSATE SOD 100 MG CAP PO PRN (06:30)
[2023-03-30] MEDS ORDERED: IPRATROPIUM BROM 0.5 MG/2.5ML INH SOL NEB PRN (06:30)
[2023-03-30] MEDS ORDERED: NITROGLYCERIN 0.4 MG SL TAB SL PRN (06:30)
[2023-03-30] MEDS ORDERED: ALBUTEROL MEDNEB 2.5 mg/3ml NEB NEB PRN (06:30)
[2023-03-30] MEDS ORDERED: ACETAMINOPHEN 500 MG TAB PO PRN (06:30)
[2023-03-30] MEDS ORDERED: ONDANSETRON HCL 4 MG/2 ML VIAL IV PRN (06:30)
[2023-03-30] MEDS ORDERED: hydrALAZINE HCL 20 MG/ML VL IV PRN (06:45)
[2023-03-30 07:36] LABS: Basophils # (auto) 0 10 ^3/uL (0-0.2); Eosinophils # (auto) 0 10 ^3/uL (0-0.8); Lymphocytes # (auto) 0.4 10 ^3/uL (0.4-5.4); Monocytes # (auto) 0.6 10 ^3/uL (0-1.3); Monocytes % (auto) 4.5 % (0.0-12.0); Neutrophils # (auto) 12.6 10 ^3/uL (1.6-8.6); Nucleated Red Blood Cells % 0.1 %; Red Cell Distribution Width 15.1 % (11.8-14.3)
[2023-03-30 07:38] LABS: Basophils % (auto) 0.2 % (0.0-2.0); Hematocrit 32.3 % (36.0-46.0); Hemoglobin 9.4 g/dL (12.2-16.2); Lymphocytes % (auto) 2.7 % (10.0-50.0); Mean Corpuscular Hemoglobin 28.7 pg (28.0-32.0); Mean Corpuscular Hgb Conc. 29.2 g/dL (32.0-36.0); Mean Corpuscular Volume 98.2 fL (80.0-100.0); Neutrophils % (auto) 92.6 % (37.0-80.0); Red Blood Cells 3.29 10^6/uL (4.0-5.20); White Blood Cell 13.6 10^3/uL (4.4-10.8)
[2023-03-30 07:48] VITALS: BP 155/68; PULSE 84; TEMP 98.5; O2SAT 97
[2023-03-30] MEDS: SOD CHL 0.45% 1,000 ML IV SCH ×2 (08:08→19:50)
[2023-03-30 08:43] LABS: Alanine Aminotransferase 11 U/L (7-40); Albumin 4.2 g/dL (3.2-4.8); Alkaline Phosphatase 96 U/L (46-116); Anion Gap 10 (5-15); Aspartate Aminotransferase 24 U/L (13-40); BUN/Creatinine Ratio 17.4 (10.0-20.0); Blood Urea Nitrogen 12 mg/dL (9-23); Calcium 8.9 mg/dL (8.5-10.1); Carbon Dioxide 27 mmol/L (20-30); Chloride 108 mmol/L (98-107); Glucose 134 mg/dL (74-106); Potassium 3.2 mmol/L (3.5-5.1); Sodium 145 mmol/L (136-145)
[2023-03-30 08:44] LABS: Bilirubin, Total 0.5 mg/dL (0.2-1.0); Total Protein 7.5 g/dL (5.7-8.2)
[2023-03-30] MEDS ORDERED: cefTRIAXone 1GM/50ML D5W 50 ML IV SCH (09:00)
[2023-03-30] MEDS ORDERED: PANTOPRAZOLE 40 MG/10 ML VIAL INJ IV SCH (10:00)
[2023-03-30] MEDS: ASPirin 81 mg TAB PO SCH (10:07)
[2023-03-30] MEDS: ATENOLOL 25 MG TAB PO SCH ×2 (10:07→23:08)
[2023-03-30] MEDS ORDERED: METOCLOPRAMIDE HCL 5MG/ml INJ 2ml VIAL IV PRN (12:00)
[2023-03-30] MEDS ORDERED: PANTOPRAZOLE 80 MG in SODIUM CHL 0.9% 100 ML IV ONE (12:15)
[2023-03-30 14:16] LABS: % Iron Saturation 13.4 % (15-50)
[2023-03-30 14:26] LABS: Folate (Folic Acid) 17.22 ng/mL (>5.38)
[2023-03-30] MEDS: PANTOPRAZOLE 40mg/50ML NS AE 50 ML IV SCH ×3 (17:15→23:18)
[2023-03-30] MEDS ORDERED: PIPERACILLIN-TAZOB 3.375GM 100 ML IV SCH (18:00)
[2023-03-30 18:02] VITALS: PULSE 72; RESP 15; O2SAT 96
[2023-03-30 18:42] LABS: Hematocrit 40.9 % (36.0-46.0); Hemoglobin 13.2 g/dL (12.2-16.2)
[2023-03-30 19:45] VITALS: PULSE 76; RESP 18; O2SAT 97
[2023-03-30 21:59] LABS: Hematocrit 39.6 % (36.0-46.0)
[2023-03-30] MEDS: ATORVASTATIN 20 MG TAB PO SCH (23:07)
[2023-03-30 23:11] VITALS: BP 144/84; PULSE 61; RESP 18; TEMP 98.3; O2SAT 92
[2023-03-31] VITALS (10 sets, daily range): BP systolic 108–157; BP diastolic 44–84; PULSE 61–74; RESP 16–19; TEMP 97.3–99.9; O2SAT 91–95
[2023-03-31] MEDS ORDERED: METO25TA5 PO (01:50)
[2023-03-31] MEDS: PIPERACILLIN-TAZOB 3.375GM 100 ML IV SCH ×4 (03:08→23:05)
[2023-03-31] MEDS: PANTOPRAZOLE 40mg/50ML NS AE 50 ML IV SCH ×5 (03:49→23:14)
[2023-03-31 06:35] LABS: Basophils # (auto) 0 10 ^3/uL (0-0.2); Basophils % (auto) 0.1 % (0.0-2.0); Eosinophils # (auto) 0 10 ^3/uL (0-0.8); Hematocrit 39.3 % (36.0-46.0); Hemoglobin 12.7 g/dL (12.2-16.2); Lymphocytes # (auto) 0.7 10 ^3/uL (0.4-5.4); Lymphocytes % (auto) 3.7 % (10.0-50.0); Mean Corpuscular Hemoglobin 28.8 pg (28.0-32.0); Mean Corpuscular Hgb Conc. 32.4 g/dL (32.0-36.0); Monocytes # (auto) 1.4 10 ^3/uL (0-1.3); Monocytes % (auto) 7.8 % (0.0-12.0); Neutrophils # (auto) 16.3 10 ^3/uL (1.6-8.6); Neutrophils % (auto) 88.4 % (37.0-80.0); Red Blood Cells 4.41 10^6/uL (4.0-5.20); Red Cell Distribution Width 14.1 % (11.8-14.3); White Blood Cell 18.5 10^3/uL (4.4-10.8)
[2023-03-31 06:51] LABS: Albumin 3.1 g/dL (3.2-4.8); Alkaline Phosphatase 46 U/L (46-116); Anion Gap 14 (5-15); Aspartate Aminotransferase 18 U/L (13-40); BUN/Creatinine Ratio 18.9 (10.0-20.0); Bilirubin, Total 0.6 mg/dL (0.2-1.0); Blood Urea Nitrogen 10 mg/dL (9-23); Calcium 7.1 mg/dL (8.5-10.1); Carbon Dioxide 30 mmol/L (20-30); Chloride 104 mmol/L (98-107); Glucose 96 mg/dL (74-106); Potassium 3.2 mmol/L (3.5-5.1); Sodium 148 mmol/L (136-145); Total Protein 5.5 g/dL (5.7-8.2)
[2023-03-31 06:53] LABS: Alanine Aminotransferase < 9 U/L (7-40)
[2023-03-31] MEDS ORDERED: POTASSIUM CHL 20 Meq TABLET PO ONE (08:00)
[2023-03-31] MEDS: ASPirin 81 mg TAB PO SCH (09:49)
[2023-03-31] MEDS: ATENOLOL 25 MG TAB PO SCH ×2 (09:51→21:32)
[2023-03-31] MEDS ORDERED: PANTOPRAZOLE 40 MG/10 ML VIAL INJ IV SCH (10:00)
[2023-03-31] MEDS ORDERED: GASTROGRAFIN 120 ML SOL ONE (13:57)
[2023-03-31] MEDS: SOD CHL 0.45% 1,000 ML IV SCH ×2 (17:58→22:30)
[2023-03-31] MEDS: ATORVASTATIN 20 MG TAB PO SCH (21:29)
[2023-03-31] MEDS: MELATONIN 5 MG TAB PO PRN (23:19)
[2023-04-01] MEDS: PANTOPRAZOLE 40mg/50ML NS AE 50 ML IV SCH ×4 (04:59→18:01)
[2023-04-01 05:00] VITALS: BP 106/53; PULSE 54; RESP 18; TEMP 98.1; O2SAT 92
[2023-04-01] MEDS: PIPERACILLIN-TAZOB 3.375GM 100 ML IV SCH ×3 (05:56→21:31)
[2023-04-01 08:00] VITALS: BP 110/54; PULSE 59; PULSE 60; RESP 18; TEMP 98.1; O2SAT 95
[2023-04-01 09:08] LABS: Basophils # (auto) 0.1 10 ^3/uL (0-0.2); Basophils % (auto) 1.1 % (0.0-2.0); Eosinophils # (auto) 0.2 10 ^3/uL (0-0.8); Eosinophils % (auto) 1.3 % (0.0-7.0); Hematocrit 34.4 % (36.0-46.0); Hemoglobin 10.8 g/dL (12.2-16.2); Lymphocytes # (auto) 0.8 10 ^3/uL (0.4-5.4); Lymphocytes % (auto) 5.4 % (10.0-50.0); Mean Corpuscular Hemoglobin 28.1 pg (28.0-32.0); Mean Corpuscular Hgb Conc. 31.4 g/dL (32.0-36.0); Mean Corpuscular Volume 89.4 fL (80.0-100.0); Monocytes % (auto) 7.1 % (0.0-12.0); Neutrophils # (auto) 11.9 10 ^3/uL (1.6-8.6); Neutrophils % (auto) 85.1 % (37.0-80.0); Red Blood Cells 3.84 10^6/uL (4.0-5.20); Red Cell Distribution Width 14.4 % (11.8-14.3)
[2023-04-01 09:31] LABS: Alanine Aminotransferase 12 U/L (7-40); Albumin 3.4 g/dL (3.2-4.8); Alkaline Phosphatase 44 U/L (46-116); Anion Gap 4 (5-15); Aspartate Aminotransferase 24 U/L (13-40); BUN/Creatinine Ratio 23.6 (10.0-20.0); Bilirubin, Total 1.1 mg/dL (0.2-1.0); Blood Urea Nitrogen 17 mg/dL (9-23); Calcium 8.2 mg/dL (8.7-10.4); Carbon Dioxide 30 mmol/L (20-30); Chloride 109 mmol/L (98-107); Glucose 111 mg/dL (74-106); Potassium 3.6 mmol/L (3.5-5.1); Sodium 143 mmol/L (136-145)
[2023-04-01 09:35] VITALS: BP 110/59; PULSE 59; RESP 18; TEMP 98.1; O2SAT 95
[2023-04-01] MEDS: ASPirin 81 mg TAB PO SCH (10:00)
[2023-04-01] MEDS: ATENOLOL 25 MG TAB PO SCH ×2 (10:00→21:30)
[2023-04-01] MEDS: SOD CHL 0.45% 1,000 ML IV SCH (11:50)
[2023-04-01] MEDS ORDERED: LIDOCAINE VISCOUS 2% 15ML UD ONE (15:22)
[2023-04-01] MEDS ORDERED: MIDAZOLAM HCL 5 MG/ML-1ML VIAL ONE (15:22)
[2023-04-01] MEDS ORDERED: SODIUM CHLORIDE LOCK 10 ML ONE (15:22)
[2023-04-01] MEDS ORDERED: diphenhdrAMINE HCL 50 MG/1 ML VL ONE (15:22)
[2023-04-01] MEDS ORDERED: fentaNYL CITRATE 100 MCG/2 ML VL ONE (15:22)
[2023-04-01] MEDS ORDERED: fentaNYL CITRATE 100 MCG/2 ML VL IV ONE ×2 (15:49→16:00)
[2023-04-01] MEDS ORDERED: MIDAZOLAM HCL 5 MG/ML-1ML VIAL IV ONE ×2 (15:49→15:52)
[2023-04-01] MEDS ORDERED: diphenhdrAMINE HCL 50 MG/1 ML VL IV ONE ×2 (15:49→15:52)
[2023-04-01 16:08] VITALS: O2SAT 94
[2023-04-01] MEDS: SUCRALFATE 1 GM/10 ML ORAL SUSP PO SCH ×2 (17:54→21:29)
[2023-04-01 20:00] VITALS: PULSE 51
[2023-04-01] MEDS: MELATONIN 5 MG TAB PO PRN (21:29)
[2023-04-01] MEDS: ATORVASTATIN 20 MG TAB PO SCH (21:29)
[2023-04-01 22:00] VITALS: BP 130/63; PULSE 56; RESP 18; TEMP 78.5; TEMP 98.5; O2SAT 94
[2023-04-01] MEDS: PANTOPRAZOLE 40 MG/10 ML VIAL INJ IV SCH (22:03)
[2023-04-02] VITALS (7 sets, daily range): BP systolic 118–147; BP diastolic 58–76; PULSE 46–79; RESP 17–22; TEMP 97.7–98.1; O2SAT 96–98
[2023-04-02] MEDS: SOD CHL 0.45% 1,000 ML IV SCH (01:10)
[2023-04-02] MEDS: PIPERACILLIN-TAZOB 3.375GM 100 ML IV SCH (05:34)
[2023-04-02] MEDS: SUCRALFATE 1 GM/10 ML ORAL SUSP PO SCH ×4 (06:07→21:18)
[2023-04-02 06:59] LABS: Basophils # (auto) 0.1 10 ^3/uL (0-0.2); Basophils % (auto) 0.5 % (0.0-2.0); Eosinophils # (auto) 0.3 10 ^3/uL (0-0.8); Hematocrit 33.7 % (36.0-46.0); Hemoglobin 10.7 g/dL (12.2-16.2); Lymphocytes # (auto) 0.8 10 ^3/uL (0.4-5.4); Lymphocytes % (auto) 7.2 % (10.0-50.0); Mean Corpuscular Hemoglobin 28.7 pg (28.0-32.0); Mean Corpuscular Hgb Conc. 31.8 g/dL (32.0-36.0); Mean Corpuscular Volume 90.4 fL (80.0-100.0); Monocytes # (auto) 0.9 10 ^3/uL (0-1.3); Monocytes % (auto) 8.6 % (0.0-12.0); Neutrophils # (auto) 8.8 10 ^3/uL (1.6-8.6); Neutrophils % (auto) 80.7 % (37.0-80.0); Nucleated Red Blood Cells % 0.1 %; Red Blood Cells 3.73 10^6/uL (4.0-5.20); Red Cell Distribution Width 14.2 % (11.8-14.3); White Blood Cell 10.9 10^3/uL (4.4-10.8)
[2023-04-02 07:11] LABS: Alanine Aminotransferase 10 U/L (7-40); Albumin 3.2 g/dL (3.2-4.8); Alkaline Phosphatase 45 U/L (46-116); Anion Gap 5 (5-15); Aspartate Aminotransferase 18 U/L (13-40); BUN/Creatinine Ratio 16.1 (10.0-20.0); Bilirubin, Total 0.8 mg/dL (0.2-1.0); Blood Urea Nitrogen 9 mg/dL (9-23); Calcium 7.7 mg/dL (8.7-10.4); Carbon Dioxide 27 mmol/L (20-30); Chloride 109 mmol/L (98-107); Glucose 107 mg/dL (74-106); Potassium 3.1 mmol/L (3.5-5.1); Sodium 141 mmol/L (136-145); Total Protein 5.6 g/dL (5.7-8.2)
[2023-04-02] MEDS: PANTOPRAZOLE 40 MG/10 ML VIAL INJ IV SCH ×2 (08:36→21:18)
[2023-04-02] MEDS: ATENOLOL 25 MG TAB PO SCH ×2 (08:37→21:18)
[2023-04-02] MEDS: ASPirin 81 mg TAB PO SCH (08:37)
[2023-04-02] MEDS ORDERED: POTASSIUM EFFERVESENT TAB 25 MEQ PO ONE (11:30)
[2023-04-02] MEDS: ATORVASTATIN 20 MG TAB PO SCH (21:17)
[2023-04-03] VITALS (7 sets, daily range): BP systolic 137–181; BP diastolic 66–96; PULSE 54–65; RESP 18–20; TEMP 98–99.1; O2SAT 96–97
[2023-04-03 05:32] LABS: Basophils # (auto) 0 10 ^3/uL (0-0.2); Basophils % (auto) 0.5 % (0.0-2.0); Eosinophils # (auto) 0.3 10 ^3/uL (0-0.8); Eosinophils % (auto) 3.1 % (0.0-7.0); Hematocrit 35.5 % (36.0-46.0); Hemoglobin 11.7 g/dL (12.2-16.2); Lymphocytes # (auto) 0.9 10 ^3/uL (0.4-5.4); Lymphocytes % (auto) 10.4 % (10.0-50.0); Mean Corpuscular Hemoglobin 28.9 pg (28.0-32.0); Mean Corpuscular Hgb Conc. 32.9 g/dL (32.0-36.0); Mean Corpuscular Volume 87.9 fL (80.0-100.0); Monocytes # (auto) 0.8 10 ^3/uL (0-1.3); Neutrophils # (auto) 6.6 10 ^3/uL (1.6-8.6); Red Blood Cells 4.04 10^6/uL (4.0-5.20); Red Cell Distribution Width 13.7 % (11.8-14.3); White Blood Cell 8.6 10^3/uL (4.4-10.8)
[2023-04-03] MEDS: SUCRALFATE 1 GM/10 ML ORAL SUSP PO SCH ×4 (05:36→21:28)
[2023-04-03 05:58] LABS: Alanine Aminotransferase 11 U/L (7-40); Alkaline Phosphatase 45 U/L (46-116); Anion Gap 6 (5-15); Calcium 8.4 mg/dL (8.5-10.1); Carbon Dioxide 30 mmol/L (20-30); Chloride 104 mmol/L (98-107); Glucose 95 mg/dL (74-106); Potassium 3.1 mmol/L (3.5-5.1); Sodium 140 mmol/L (136-145)
[2023-04-03 05:59] LABS: Albumin 3.4 g/dL (3.2-4.8); Aspartate Aminotransferase 18 U/L (13-40); Bilirubin, Total 0.8 mg/dL (0.2-1.0)
[2023-04-03 06:09] LABS: BUN/Creatinine Ratio 9.8 (10.0-20.0); Blood Urea Nitrogen < 5 mg/dL (9-23)
[2023-04-03 07:04] LABS: CRP High Sensitivity 2.92 mg/dL (<1.0)
[2023-04-03] MEDS ORDERED: POTASSIUM EFFERVESENT TAB 25 MEQ PO ONE (07:30)
[2023-04-03 08:36] LABS: Magnesium 1.9 mg/dL (1.6-2.6)
[2023-04-03] MEDS: cefTRIAXone 1GM/50ML D5W 50 ML IV SCH (09:23)
[2023-04-03] MEDS: PANTOPRAZOLE 40 MG/10 ML VIAL INJ IV SCH ×2 (09:24→21:31)
[2023-04-03] MEDS: ASPirin 81 mg TAB PO SCH (09:24)
[2023-04-03] MEDS: LOSARTAN POTASSIUM 25 MG TAB PO SCH (09:25)
[2023-04-03] MEDS ORDERED: AML5T PO (10:43)
[2023-04-03] MEDS ORDERED: SUCR1SUS26 PO (10:43)
[2023-04-03 11:12] LABS: Base Excess 2.7 mmol/L (-2.0-2.0)
[2023-04-03] MEDS: ATORVASTATIN 20 MG TAB PO SCH (21:28)
[2023-04-03] MEDS: amLODIPine BESYLATE 5 MG TAB PO SCH (21:28)
[2023-04-03] MEDS: MELATONIN 5 MG TAB PO PRN (21:30)
[2023-04-04 05:00] VITALS: BP 120/56; PULSE 61; RESP 20; TEMP 98.5; O2SAT 95
[2023-04-04] MEDS: SUCRALFATE 1 GM/10 ML ORAL SUSP PO SCH ×3 (06:05→17:15)
[2023-04-04 08:00] VITALS: PULSE 68; RESP 12; O2SAT 94
[2023-04-04 08:53] VITALS: BP 141/63; PULSE 68; RESP 12; TEMP 97.6; O2SAT 94
[2023-04-04] MEDS: PANTOPRAZOLE 40 MG/10 ML VIAL INJ IV SCH (09:39)
[2023-04-04] MEDS: cefTRIAXone 1GM/50ML D5W 50 ML IV SCH (09:39)
[2023-04-04] MEDS: ASPirin 81 mg TAB PO SCH (09:39)
[2023-04-04] MEDS: LOSARTAN POTASSIUM 25 MG TAB PO SCH (09:40)
[2023-04-04] MEDS: amLODIPine BESYLATE 5 MG TAB PO SCH (09:40)
[2023-04-04 11:46] LABS: Base Excess 0.7 mmol/L (-2.0-2.0)
[2023-04-04 13:00] VITALS: BP 140/78; PULSE 67; RESP 18; TEMP 99.3; O2SAT 96
[2023-04-04 16:22] VITALS: BP 141/63; PULSE 78; RESP 18; TEMP 37.4; O2SAT 96
[2023-04-04 17:00] VITALS: BP 157/81; PULSE 63; RESP 16; TEMP 97.8; O2SAT 96
== END 2023-04-04 19:45 | disposition home health service (06) | DRG 871 ==
LOC: ER 00:32 → TELE 06:36 → TELE-WESTW 22:04
PROVIDERS: ADMIT Internal Medicine; ATTEND Internal Medicine
PROC: 0DB98ZX Excision of Duodenum, Via Natural or Artificial Opening Endoscopic, Diagnostic (ICD-10-PCS; principal; 2023-03-30)
PROC: 0DB68ZX Excision of Stomach, Via Natural or Artificial Opening Endoscopic, Diagnostic (ICD-10-PCS; 2023-03-30)
PROC: 0DB38ZX Excision of Lower Esophagus, Via Natural or Artificial Opening Endoscopic, Diagnostic (ICD-10-PCS; 2023-03-30)
DX: A41.9 Sepsis, unspecified organism (principal); K22.11 Ulcer of esophagus with bleeding; K56.2 Volvulus; N39.0 Urinary tract infection, site not specified; E86.0 Dehydration; E87.6 Hypokalemia; I10 Essential (primary) hypertension; K44.9 Diaphragmatic hernia without obstruction or gangrene; F41.9 Anxiety disorder, unspecified; K21.9 Gastro-esophageal reflux disease without esophagitis; J44.9 Chronic obstructive pulmonary disease, unspecified; K52.9 Noninfective gastroenteritis and colitis, unspecified; R79.89 Other specified abnormal findings of blood chemistry; Z66 Do not resuscitate; I71.22 Aneurysm of the aortic arch, without rupture; D64.9 Anemia, unspecified; Z53.29 Procedure and treatment not carried out because of patient's decision for other reasons; R09.02 Hypoxemia; Z83.3 Family history of diabetes mellitus; Z82.49 Family history of ischemic heart disease and other diseases of the circulatory system; Z90.710 Acquired absence of both cervix and uterus; Z82.3 Family history of stroke; Z88.5 Allergy status to narcotic agent
CPT/HCPCS: 36415; 36600; 43239; 71045; 71250; 71275; 74176; 74250; 80053; 81001; 82607; 82746; 82805; 83540; 83550; 83605; 83615; 83735; 83880; 84484; 85014; 85018; 85025; 85379; 85610; 85730; 86141; 87040; 87086; 87088; 87186; 93005; 94640; 96361; 96374; 96375; 97110; 97116; 97163; 99291; C9113; G0378; J0696; J1100; J2250; J2405; J2543

== ENCOUNTER 2023-06-03 00:54 | Emergency (ER) | payer OTHER ==
[~2023-06-03] VITALS: Ht 160 cm; Wt 46.4 kg
[~2023-06-03 00:54] MED LIST changes: +AML5T PO; -ATEN-60 PO; +NITR-87 PO; -PANT40TA2 PO; +SUCR1SUS26 PO
[2023-06-03 01:08] VITALS: BP 174/86; PULSE 79; RESP 15; O2SAT 97
== END 2023-06-03 01:30 | disposition home or self-care (01) ==
LOC: ER 00:54
DX: I10 Essential (primary) hypertension (principal); I25.2 Old myocardial infarction; E78.5 Hyperlipidemia, unspecified; K21.9 Gastro-esophageal reflux disease without esophagitis; J44.9 Chronic obstructive pulmonary disease, unspecified; M19.90 Unspecified osteoarthritis, unspecified site; F41.9 Anxiety disorder, unspecified; Z86.2 Personal history of diseases of the blood and blood-forming organs and certain disorders involving the immune mechanism; Z98.890 Other specified postprocedural states; Z88.8 Allergy status to other drugs, medicaments and biological substances; Z79.899 Other long term (current) drug therapy

== ENCOUNTER → 2023-07-13 | Outpatient (CLI) | payer OTHER ==
[2023-07-13 08:06] LABS: Basophils # (auto) 0.1 10 ^3/uL (0-0.2); Basophils % (auto) 0.9 % (0.0-2.0); Eosinophils # (auto) 0.1 10 ^3/uL (0-0.8); Eosinophils % (auto) 2.2 % (0.0-7.0); Hematocrit 39.7 % (36.0-46.0); Lymphocytes # (auto) 1.1 10 ^3/uL (0.4-5.4); Lymphocytes % (auto) 16.4 % (10.0-50.0); Mean Corpuscular Hemoglobin 27.6 pg (28.0-32.0); Mean Corpuscular Hgb Conc. 32.8 g/dL (32.0-36.0); Mean Corpuscular Volume 84.3 fL (80.0-100.0); Monocytes # (auto) 0.5 10 ^3/uL (0-1.3); Monocytes % (auto) 8.1 % (0.0-12.0); Neutrophils # (auto) 4.6 10 ^3/uL (1.6-8.6); Neutrophils % (auto) 72.4 % (37.0-80.0); Nucleated Red Blood Cells % 0.1 %; Red Blood Cells 4.71 10^6/uL (4.0-5.20); Red Cell Distribution Width 16.3 % (11.8-14.3); White Blood Cell 6.4 10^3/uL (4.4-10.8)
[2023-07-13 08:32] LABS: Protein, Urine < 6.0 mg/dL (0.0-11.9)
[2023-07-13 08:34] LABS: Creatinine, Urine 23.45 mg/dL (30.0-125.0); Urine Protein/Creatinine Ratio 0.26
[2023-07-13 08:36] LABS: Albumin 4.2 g/dL (3.2-4.8); Potassium 3.3 mmol/L (3.5-5.1)
[2023-07-13 08:37] LABS: Bilirubin, Direct 0.3 mg/dL (<0.3); Bilirubin, Total 0.8 mg/dL (0.2-1.0); Total Protein 6.8 g/dL (5.7-8.2)
[2023-07-13 09:03] LABS: Uric Acid 4.5 mg/dL (3.1-7.8)
== END | disposition home or self-care (01) ==
LOC: LAB 07:49
PROVIDERS: ATTEND Student in an Organized Health Care Education/Training Program
DX: I11.0 Hypertensive heart disease with heart failure (principal); I50.42 Chronic combined systolic (congestive) and diastolic (congestive) heart failure; R00.1 Bradycardia, unspecified
CPT/HCPCS: 36415; 80051; 80061; 80076; 82570; 83036; 84156; 84550; 85025

== ENCOUNTER → 2023-09-30 | Outpatient (CLI) | payer OTHER ==
[~2023-09-30] MED LIST changes: +CEPH250C PO; +LOSA-534 PO; -LOSA50TA46 PO; +MECL1TAB42 PO
[2023-09-30 08:18] LABS: Urine Bacteria None Seen /hpf (None Seen)
[2023-09-30 09:11] LABS: Urine Blood Negative /uL (Negative); Urine Clarity Clear (Clear); Urine Color Light-Yellow (Yellow); Urine Protein, UAD Negative (Negative); Urine Specific Gravity 1.014 (1.001-1.035); Urine Urobilinogen Normal (Negative); Urine WBC <1 /hpf (0 - 5); Urine pH 6.5 (5.0-9.0)
== END | disposition home or self-care (01) ==
LOC: LAB 08:15
PROVIDERS: ATTEND Urology
DX: N39.0 Urinary tract infection, site not specified (principal)
CPT/HCPCS: 81001; 87086

== ENCOUNTER → 2023-12-08 | Outpatient (CLI) | payer OTHER | END | disposition home or self-care (01) | LOC: LAB 12:05 | PROVIDERS: ATTEND Urology | DX: N13.30 Unspecified hydronephrosis (principal) | CPT/HCPCS: 36415; 84132 ==

== ENCOUNTER → 2023-12-09 | Outpatient (CLI) | payer OTHER ==
[~2023-12-09] VITALS: Ht 30.5 cm; Wt 0.5 kg
[2023-12-09] MEDS: FUROSEMIDE 40 MG/4 ML VIAL IV ONE (09:30)
== END | disposition home or self-care (01) ==
LOC: XY 08:15
PROVIDERS: ATTEND Urology
DX: N28.89 Other specified disorders of kidney and ureter (principal); N13.30 Unspecified hydronephrosis
CPT/HCPCS: 78707; A9562; J1940

== ENCOUNTER 2023-12-18 23:55 | Emergency (ER) | payer OTHER ==
[~2023-12-18] VITALS: Ht 160 cm; Wt 45.0 kg
[2023-12-19 01:03] LABS: Urine Bacteria None Seen /hpf (None Seen)
[2023-12-19 01:08] LABS: Urine Blood TRACE /uL (Negative); Urine Clarity Clear (Clear); Urine Color Light-Yellow (Yellow); Urine Protein, UAD Negative (Negative); Urine Specific Gravity 1.009 (1.001-1.035); Urine Urobilinogen Normal (Negative); Urine WBC <1 /hpf (0 - 5)
[2023-12-19 01:29] LABS: Basophils # (auto) 0.1 10 ^3/uL (0-0.2); Basophils % (auto) 1.2 % (0.0-2.0); Eosinophils # (auto) 0.1 10 ^3/uL (0-0.8); Hematocrit 36.3 % (36.0-46.0); Hemoglobin 12.4 g/dL (12.2-16.2); Lymphocytes # (auto) 1.3 10 ^3/uL (0.4-5.4); Lymphocytes % (auto) 18.3 % (10.0-50.0); Mean Corpuscular Hemoglobin 29.8 pg (28.0-32.0); Mean Corpuscular Hgb Conc. 34.1 g/dL (32.0-36.0); Mean Corpuscular Volume 87.4 fL (80.0-100.0); Monocytes # (auto) 0.6 10 ^3/uL (0-1.3); Monocytes % (auto) 8.8 % (0.0-12.0); Neutrophils # (auto) 4.9 10 ^3/uL (1.6-8.6); Neutrophils % (auto) 69.7 % (37.0-80.0); Red Blood Cells 4.15 10^6/uL (4.0-5.20); Red Cell Distribution Width 15.1 % (11.8-14.3)
[2023-12-19 01:44] LABS: Alanine Aminotransferase 12 U/L (7-40); Albumin 3.9 g/dL (3.2-4.8); Alkaline Phosphatase 45 U/L (46-116); Anion Gap 4 (5-15); Aspartate Aminotransferase 17 U/L (13-40); BUN/Creatinine Ratio 29.9 (10.0-20.0); Bilirubin, Total 0.5 mg/dL (0.2-1.0); Blood Urea Nitrogen 23 mg/dL (9-23); Calcium 9.6 mg/dL (8.7-10.4); Carbon Dioxide 27 mmol/L (20-30); Chloride 102 mmol/L (98-107); Glucose 98 mg/dL (74-106); Potassium 4.3 mmol/L (3.5-5.1); Sodium 133 mmol/L (136-145)
[2023-12-19 02:21] VITALS: BP 122/86; PULSE 66; RESP 17; TEMP 97.6; O2SAT 95
== END 2023-12-19 02:22 | disposition home or self-care (01) ==
LOC: ER 23:55
DX: R10.9 Unspecified abdominal pain (principal); J44.9 Chronic obstructive pulmonary disease, unspecified; E78.5 Hyperlipidemia, unspecified; I10 Essential (primary) hypertension; Z90.710 Acquired absence of both cervix and uterus; Z98.890 Other specified postprocedural states; Z88.5 Allergy status to narcotic agent; Z79.891 Long term (current) use of opiate analgesic; Z79.899 Other long term (current) drug therapy
CPT/HCPCS: 36415; 80053; 81001; 85025

== ENCOUNTER 2024-04-12 09:01 | Day surgery (SDC) | payer OTHER ==
[2024-04-05 11:37] LABS: Alanine Aminotransferase 14 U/L (7-40); Alkaline Phosphatase 63 U/L (46-116); Anion Gap 4 (5-15); Aspartate Aminotransferase 21 U/L (13-40); Calcium 9.8 mg/dL (8.7-10.4); Carbon Dioxide 30 mmol/L (20-31); Chloride 104 mmol/L (98-107); Potassium 4.1 mmol/L (3.5-5.1); Sodium 138 mmol/L (136-145)
[2024-04-05 11:38] LABS: Glucose 75 mg/dL (74-106)
[2024-04-05 11:39] LABS: BUN/Creatinine Ratio 25.3 (10.0-20.0); Blood Urea Nitrogen 19 mg/dL (9-23)
[2024-04-05 11:41] LABS: Bilirubin, Total 0.6 mg/dL (0.2-1.0)
[2024-04-05 11:44] LABS: Urine Bacteria FEW /hpf (None Seen); Urine Blood 1+ /uL (Negative); Urine Clarity Clear (Clear); Urine Color Light-Yellow (Yellow); Urine Protein, UAD Negative (Negative); Urine Specific Gravity 1.008 (1.001-1.035); Urine Urobilinogen Normal (Negative); Urine WBC 58 /hpf (0 - 5); Urine pH 6.5 (5.0-9.0)
[2024-04-05 11:48] LABS: INR 1.03 (0.9-1.15); Partial Thromboplastin Time 28.4 SEC (24.5-34.5); Prothrombin Time 10.9 sec (9.3-11.8)
[2024-04-05 11:50] LABS: Basophils # (auto) 0.1 10 ^3/uL (0-0.2); Basophils % (auto) 1.8 % (0.0-2.0); Eosinophils # (auto) 0.1 10 ^3/uL (0-0.8); Eosinophils % (auto) 2.8 % (0.0-7.0); Hematocrit 38.4 % (36.0-46.0); Hemoglobin 12.9 g/dL (12.2-16.2); Lymphocytes # (auto) 0.9 10 ^3/uL (0.4-5.4); Lymphocytes % (auto) 17.8 % (10.0-50.0); Mean Corpuscular Hemoglobin 29.6 pg (28.0-32.0); Mean Corpuscular Hgb Conc. 33.5 g/dL (32.0-36.0); Mean Corpuscular Volume 88.2 fL (80.0-100.0); Monocytes # (auto) 0.6 10 ^3/uL (0-1.3); Monocytes % (auto) 11.3 % (0.0-12.0); Neutrophils # (auto) 3.4 10 ^3/uL (1.6-8.6); Neutrophils % (auto) 66.3 % (37.0-80.0); Nucleated Red Blood Cells % 0.1 %; Platelet Count (auto) 275 10^3/uL (140-450); Red Blood Cells 4.35 10^6/uL (4.0-5.20); Red Cell Distribution Width 14.2 % (11.8-14.3); White Blood Cell 5.2 10^3/uL (4.4-10.8)
[~2024-04-12] VITALS: Ht 160 cm; Wt 45.8 kg
[~2024-04-12 09:01] MED LIST changes: -AML5T PO; +ASCO500T11 PO; +B-COCAP34 OR; -CALC200S4; -CALC600T65 PO; +CALCCHW53 OR; -CEPH250C PO; +CHOL20004 PO; +CYAN-17 PO; +DULO1CAP5 PO; +EMOLCRE EX; -HYDR25TA5 PO; +MAGN400T40 OR; -NITR-87 PO; -PAR20T GT; +POLY335015 PO; -SUCR1SUS26 PO; -TRAM50TA2 PO
[2024-04-12] MEDS ORDERED: CIPROFLOXACIN 400MG/200ML 200 ML IV ONE (09:55)
[2024-04-12] MEDS ORDERED: IOHEXOL 300 MG/ML 100ML BOTTLE IJ ONE (10:50)
[2024-04-12] MEDS ORDERED: PROPOFOL 10 MG/ML 20 ML IV ONE (11:01)
[2024-04-12] MEDS ORDERED: fentaNYL CITRATE 100 MCG/2 ML VL ONE (11:01)
[2024-04-12] MEDS ORDERED: ePHEDrine SULFATE 50 MG/ML AMP ONE (11:16)
[2024-04-12] MEDS ORDERED: PHENYLEPHRINE HCL 10 MG/ML VL ONE (11:16)
[2024-04-12 11:37] VITALS: PULSE 78; RESP 18; TEMP 98.1; O2SAT 99
[2024-04-12 12:20] VITALS: BP 111/53; PULSE 68; RESP 13; O2SAT 93
--- NOTE | 2024-04-12 13:16 | DVHDS2 ---
New Physician D'charge PN Admitting Diagnosis Admitting Diagnosis Left hydronephrosis Discharge Diagnosis Left UPJ obstruction Operations or Procedures Cystoscopy with left retrograde pyelogram and left ureteral stent placement Reason(s) For Hospitalization Surgery Treatment Plan Discharge Condition of Discharge Fair Disposition Home Discharge Instructions Diet: Regular Activity: Light activity Activity comment: As tolerated Medications: Given Follow Up Care Follow Up/Referral: Patient will need to undergo left ureteral stent exchange in 3-6 months Discharge Statement: "Patient was advised to return to the ER or call 911 if any headaches, dizziness, shortness of breath, chest pain, abdominal pain, bleeding, fevers, or worsening of medical condition. Patient was counseled about treatment plan, medications, possible side effects, patientverbalized understanding. All questions were answered to the best of my ability. This discharge took greater then 30 minutes in planning, reviewing documentation, counseling the patient, and discussing with other team members." SANDRA MALIK MD Apr 12, 2024 13:16
--- NOTE | 2024-04-12 19:38 | DVH ---
C-ARM FLUOROSCOPY: PROCEDURE: cystoscopy FLUOROSCOPY TIME: 66 sec
--- NOTE | 2024-04-12 19:38 | DVH ---
C-ARM FLUOROSCOPY: PROCEDURE: cystoscopy FLUOROSCOPY TIME: 66 sec
== END 2024-04-12 12:55 | disposition home or self-care (01) ==
LOC: SUR 09:01
PROVIDERS: ATTEND Urology
DX: N13.1 Hydronephrosis with ureteral stricture, not elsewhere classified (principal); I10 Essential (primary) hypertension; I48.0 Paroxysmal atrial fibrillation; Z79.899 Other long term (current) drug therapy; Z98.890 Other specified postprocedural states
CPT/HCPCS: 36415; 52332; 74018; 74420; 80053; 81001; 85025; 85610; 85730; 87086; C2617; J0744; J2371; J2704; J3010; Q9967; 76000

== ENCOUNTER → 2024-05-17 | Outpatient (CLI) | payer OTHER ==
[2024-05-17 07:24] LABS: Urine Bacteria None Seen /hpf (None Seen)
[2024-05-17 07:42] LABS: Basophils # (auto) 0.1 10 ^3/uL (0-0.2); Basophils % (auto) 1.9 % (0.0-2.0); Eosinophils # (auto) 0.3 10 ^3/uL (0-0.8); Hematocrit 40.6 % (36.0-46.0); Hemoglobin 13.5 g/dL (12.2-16.2); Lymphocytes # (auto) 1.2 10 ^3/uL (0.4-5.4); Lymphocytes % (auto) 20.4 % (10.0-50.0); Mean Corpuscular Hemoglobin 29.2 pg (28.0-32.0); Mean Corpuscular Hgb Conc. 33.3 g/dL (32.0-36.0); Mean Corpuscular Volume 87.9 fL (80.0-100.0); Monocytes # (auto) 0.5 10 ^3/uL (0-1.3); Monocytes % (auto) 9.1 % (0.0-12.0); Neutrophils # (auto) 3.8 10 ^3/uL (1.6-8.6); Neutrophils % (auto) 63.6 % (37.0-80.0); Platelet Count (auto) 281 10^3/uL (140-450); Red Blood Cells 4.62 10^6/uL (4.0-5.20); Red Cell Distribution Width 14.3 % (11.8-14.3)
[2024-05-17 08:01] LABS: Urine Blood 2+ /uL (Negative); Urine Clarity Clear (Clear); Urine Color Light-Yellow (Yellow); Urine Protein, UAD 2+ (Negative); Urine Specific Gravity 1.011 (1.001-1.035); Urine Squamous Epithelial Cell FEW /hpf (<5); Urine Urobilinogen Normal (Negative); Urine WBC 9 /hpf (0 - 5)
[2024-05-17 08:18] LABS: Alanine Aminotransferase 13 U/L (7-40); Alkaline Phosphatase 71 U/L (46-116); Anion Gap 7 (5-15); Aspartate Aminotransferase 24 U/L (13-40); BUN/Creatinine Ratio 24.4 (10.0-20.0); Blood Urea Nitrogen 20 mg/dL (9-23); Calcium 9.8 mg/dL (8.7-10.4); Carbon Dioxide 28 mmol/L (20-31); Chloride 104 mmol/L (98-107); Cholesterol 140 mg/dL (< 200); Glucose 95 mg/dL (74-106); LDL Cholesterol 71 mg/dL (< 100); Potassium 4.4 mmol/L (3.5-5.1); Sodium 139 mmol/L (136-145); Triglycerides 54 mg/dL (< 150)
[2024-05-17 08:19] LABS: Bilirubin, Total 0.5 mg/dL (0.2-1.0); Total Protein 7.1 g/dL (5.7-8.2)
[2024-05-17 08:29] LABS: HDL Cholesterol 66 mg/dL (40-59)
== END | disposition home or self-care (01) ==
LOC: LAB 07:13
PROVIDERS: ATTEND Internal Medicine
DX: Z00.01 Encounter for general adult medical examination with abnormal findings (principal); Z13.1 Encounter for screening for diabetes mellitus; I12.9 Hypertensive chronic kidney disease with stage 1 through stage 4 chronic kidney disease, or unspecified chronic kidney disease; N18.2 Chronic kidney disease, stage 2 (mild)
CPT/HCPCS: 36415; 80053; 80061; 81001; 83036; 84439; 84443; 85025

== ENCOUNTER → 2024-07-22 | Outpatient (CLI) | payer OTHER ==
[2024-07-22 06:42] LABS: Urine Bacteria None Seen /hpf (None Seen)
[2024-07-22 09:06] LABS: Urine Blood 3+ /uL (Negative); Urine Clarity Turbid (Clear); Urine Color Brown (Yellow); Urine Mucus FEW (None Seen); Urine Protein, UAD 3+ (Negative); Urine Specific Gravity 1.019 (1.001-1.035); Urine Squamous Epithelial Cell None Seen /hpf (<5); Urine Urobilinogen Normal (Negative); Urine WBC 141 /HPF (0-5); Urine pH 6.5 (5.0-9.0)
== END | disposition home or self-care (01) ==
LOC: LAB 06:33
PROVIDERS: ATTEND Urology
DX: N39.0 Urinary tract infection, site not specified (principal)
CPT/HCPCS: 81001; 87086

== ENCOUNTER → 2024-08-24 | Outpatient (CLI) | payer OTHER ==
[2024-08-24 09:59] LABS: CRP High Sensitivity 0.21 mg/dL (<1.0); Calcium 10.1 mg/dL (8.7-10.4)
[2024-08-24 10:06] LABS: Erythrocyte Sedimentation Rate 13 mm/hr (0-20)
== END | disposition home or self-care (01) ==
LOC: LAB 08:56
PROVIDERS: ATTEND Internal Medicine Rheumatology
DX: M81.0 Age-related osteoporosis without current pathological fracture (principal)
CPT/HCPCS: 36415; 82306; 82310; 82565; 84450; 84460; 85652; 86141

== ENCOUNTER → 2024-08-31 | Outpatient (CLI) | payer OTHER ==
[2024-08-31 12:32] LABS: Urine Bacteria None Seen /hpf (None Seen)
[2024-08-31 12:53] LABS: Urine Blood 2+ /uL (Negative); Urine Clarity Turbid (Clear); Urine Color Yellow (Yellow); Urine Protein, UAD 2+ (Negative); Urine Specific Gravity 1.017 (1.001-1.035); Urine Squamous Epithelial Cell FEW /hpf (<5); Urine Urobilinogen Normal (Negative); Urine WBC 79 /HPF (0-5)
== END | disposition home or self-care (01) ==
LOC: LAB 12:27
PROVIDERS: ATTEND Internal Medicine
DX: N39.9 Disorder of urinary system, unspecified (principal); Z79.899 Other long term (current) drug therapy
CPT/HCPCS: 81001; 87086

== ENCOUNTER 2024-10-13 14:31 | Outpatient (CLI) | payer OTHER ==
[2024-10-13 14:40] LABS: Urine Bacteria None Seen /hpf (None Seen)
[2024-10-13 16:28] LABS: Urine Blood 1+ /uL (Negative); Urine Clarity Turbid (Clear); Urine Color Yellow (Yellow); Urine Mucus FEW (None Seen); Urine Protein, UAD 2+ (Negative); Urine Specific Gravity 1.017 (1.001-1.035); Urine Squamous Epithelial Cell FEW /hpf (<5); Urine Urobilinogen Normal (Negative); Urine WBC 16 /HPF (0-5); Urine pH 6.5 (5.0-9.0)
== END 2024-10-13 17:00 | disposition home or self-care (01) ==
LOC: LAB 14:31
PROVIDERS: ATTEND Urology
DX: R33.9 Retention of urine, unspecified (principal)
CPT/HCPCS: 81001; 87086